=== PATIENT | male | born 1940 | race Caucasian/White ===

== ENCOUNTER → 2016-11-20 | Outpatient (REF) | payer MEDICARE, OTHER ==
[~2016-11-20] MED LIST: ALLE180T33 PO; BAYE325T12 PO; CALCTAB68 PO; CARD4TAB2 PO; DIOV160T6 PO; DRIS50002 PO; FENO145T PO; KETO2AER2 EXT; KETO2CR EXT; LASI80TA PO; LOVA1CAP17 PO; PROA1AER INH; PROT1TAB2 PO; PROZ20CA11 PO; PROZ40CA PO; XALA0.002 OU
[2016-11-20 15:45] LABS: MEAN CORPUSCULAR HEMOGLOBIN 29.6 pg (27.0-33.0); MEAN CORPUSCULAR HGB CONC 33.3 g/dl (32.0-36.5); WHITE BLOOD COUNT 4.2 K/mm3 (4.0-10.0)
[2016-11-20 16:06] LABS: ALBUMIN 3.4 GM/DL (3.2-5.2); ALBUMIN/GLOBULIN RATIO 1.21 (1.00-1.93); ALKALINE PHOSPHATASE 42 U/L (45-117); ALT/SGPT 25 U/L (12-78); ANION GAP 6 MEQ/L (8-16); AST/SGOT 16 U/L (15-37); BILIRUBIN,TOTAL 0.4 MG/DL (0.2-1.0); BLOOD UREA NITROGEN 17 MG/DL (7-18); CALCIUM LEVEL 9.2 MG/DL (8.8-10.2); CARBON DIOXIDE LEVEL 30 MEQ/L (21-32); CHLORIDE LEVEL 107 MEQ/L (98-107); CHOLESTEROL LEVEL 205 MG/DL (<200); CREATININE FOR GFR 1.16 MG/DL (0.70-1.30); GLOMERULAR FILTRATION RATE > 60.0 (>42); GLUCOSE, FASTING 82 MG/DL (83-110); POTASSIUM SERUM 4.1 MEQ/L (3.5-5.1); SODIUM LEVEL 143 MEQ/L (136-145); TOTAL PROTEIN 6.2 GM/DL (6.4-8.2); TRIGLYCERIDES LEVEL 164 MG/DL (<150)
== END ==
LOC: M SFHCPLAZ 13:57
PROVIDERS: ATTEND Family Medicine
DX: G47.33 Obstructive sleep apnea (adult) (pediatric) (principal); I10 Essential (primary) hypertension; E11.9 Type 2 diabetes mellitus without complications; E78.2 Mixed hyperlipidemia

== ENCOUNTER → 2017-05-26 | Outpatient (REF) | payer MEDICARE, OTHER ==
[~2017-05-26] MED LIST changes: -PROA1AER INH; +PROAAER10 INH; -XALA0.002 OU; +XALA0.007 OU
[2017-05-26 20:17] LABS: ALBUMIN 3.6 GM/DL (3.2-5.2); ALKALINE PHOSPHATASE 38 U/L (45-117); ALT/SGPT 28 U/L (12-78); ANION GAP 6 MEQ/L (8-16); AST/SGOT 19 U/L (15-37); BILIRUBIN,TOTAL 0.4 MG/DL (0.2-1.0); BLOOD UREA NITROGEN 14 MG/DL (7-18); CARBON DIOXIDE LEVEL 30 MEQ/L (21-32); CHLORIDE LEVEL 105 MEQ/L (98-107); CHOLESTEROL LEVEL 245 MG/DL (<200); CREATININE FOR GFR 1.04 MG/DL (0.70-1.30); GLOMERULAR FILTRATION RATE > 60.0 (>42); GLUCOSE, FASTING 106 MG/DL (83-110); POTASSIUM SERUM 3.6 MEQ/L (3.5-5.1); SODIUM LEVEL 141 MEQ/L (136-145); TOTAL PROTEIN 6.6 GM/DL (6.4-8.2); TRIGLYCERIDES LEVEL 256 MG/DL (<150)
== END ==
LOC: M SFHCPLAZ 14:34
PROVIDERS: ATTEND Nurse Practitioner Adult Health
DX: E11.9 Type 2 diabetes mellitus without complications (principal); I10 Essential (primary) hypertension; E78.2 Mixed hyperlipidemia; E55.9 Vitamin D deficiency, unspecified; Z23 Encounter for immunization
CPT/HCPCS: 36415; 80053; 80061; 82043; 82306; 83036; 90662; G0008

== ENCOUNTER → 2017-12-01 | Outpatient (REF) | payer MEDICARE, OTHER ==
[2017-12-01 16:02] LABS: HEMATOCRIT 37.8 % (42.0-52.0); HEMOGLOBIN 12.3 g/dl (13.5-17.5); MEAN CORPUSCULAR HEMOGLOBIN 28.7 pg (27.0-33.0); MEAN CORPUSCULAR HGB CONC 32.5 g/dl (32.0-36.5); MEAN CORPUSCULAR VOLUME 88.1 fl (80.0-96.0); PLATELET COUNT, AUTOMATED 156 10^3/uL (150-450); RED BLOOD COUNT 4.29 10^6/uL (4.30-6.10); RED CELL DISTRIBUTION WIDTH 12.8 % (11.5-14.5)
[2017-12-01 16:12] LABS: ALBUMIN 3.6 GM/DL (3.2-5.2); ALBUMIN/GLOBULIN RATIO 1.16 (1.00-1.93); ALKALINE PHOSPHATASE 43 U/L (45-117); ALT/SGPT 23 U/L (12-78); ANION GAP 6 MEQ/L (8-16); AST/SGOT 18 U/L (7-37); BILIRUBIN,TOTAL 0.4 MG/DL (0.2-1.0); BLOOD UREA NITROGEN 17 MG/DL (7-18); CALCIUM LEVEL 9.5 MG/DL (8.8-10.2); CARBON DIOXIDE LEVEL 31 MEQ/L (21-32); CHLORIDE LEVEL 106 MEQ/L (98-107); CHOLESTEROL LEVEL 233 MG/DL (<200); CHOLESTEROL RISK RATIO 5.682 (<5); CREATININE FOR GFR 1.13 MG/DL (0.70-1.30); GLOMERULAR FILTRATION RATE > 60.0 (>42); GLUCOSE, FASTING 124 MG/DL (70-100); HDL CHOLESTEROL 41 MG/DL (>40); LDL CHOLESTEROL 150.2 MG/DL (<100); NON-HDL-C 192 MG/DL; POTASSIUM SERUM 3.7 MEQ/L (3.5-5.1); SODIUM LEVEL 143 MEQ/L (136-145); TOTAL PROTEIN 6.7 GM/DL (6.4-8.2); TRIGLYCERIDES LEVEL 209 MG/DL (<150)
[2017-12-01 16:15] LABS: ESTIMATED AVERAGE GLUCOSE 166 MG/DL (60-110); HEMOGLOBIN A1c 7.4 %; TOTAL 25(OH) VITAMIN D 59.5 NG/ML (30.0-100.0)
[2017-12-01 19:36] LABS: MALB URINE SIEMENS 36.6 MG/L
== END ==
LOC: M SFHCPLAZ 14:45
DX: E11.9 Type 2 diabetes mellitus without complications (principal); E55.9 Vitamin D deficiency, unspecified; I10 Essential (primary) hypertension; E78.2 Mixed hyperlipidemia; G47.33 Obstructive sleep apnea (adult) (pediatric); Z79.899 Other long term (current) drug therapy; Z79.82 Long term (current) use of aspirin
CPT/HCPCS: 80053

== ENCOUNTER → 2018-05-26 | Outpatient (REF) | payer MEDICARE, OTHER ==
[2018-05-26 17:48] LABS: ALBUMIN 3.4 GM/DL (3.2-5.2); ALKALINE PHOSPHATASE 38 U/L (45-117); ALT/SGPT 21 U/L (12-78); ANION GAP 7 MEQ/L (8-16); AST/SGOT 13 U/L (7-37); BILIRUBIN,TOTAL 0.4 MG/DL (0.2-1.0); BLOOD UREA NITROGEN 15 MG/DL (7-18); CALCIUM LEVEL 9.1 MG/DL (8.8-10.2); CARBON DIOXIDE LEVEL 30 MEQ/L (21-32); CHLORIDE LEVEL 107 MEQ/L (98-107); CHOLESTEROL LEVEL 245 MG/DL (<200); CHOLESTEROL RISK RATIO 5.975 (<5); CREATININE FOR GFR 1.06 MG/DL (0.70-1.30); GLOMERULAR FILTRATION RATE > 60.0 (>42); GLUCOSE, FASTING 129 MG/DL (70-100); HDL CHOLESTEROL 41 MG/DL (>40); LDL CHOLESTEROL 171 MG/DL (<100); NON-HDL-C 204 MG/DL; POTASSIUM SERUM 4.4 MEQ/L (3.5-5.1); SODIUM LEVEL 144 MEQ/L (136-145); TOTAL PROTEIN 6.5 GM/DL (6.4-8.2); TRIGLYCERIDES LEVEL 164 MG/DL (<150)
[2018-05-26 18:29] LABS: ESTIMATED AVERAGE GLUCOSE 151 MG/DL (60-110); HEMOGLOBIN A1c 6.9 %
[2018-05-26 18:34] LABS: MALB URINE SIEMENS 33.6 MG/L
== END ==
LOC: M SFHCLERA 11:47
DX: I10 Essential (primary) hypertension (principal); E11.9 Type 2 diabetes mellitus without complications; E78.2 Mixed hyperlipidemia; E55.9 Vitamin D deficiency, unspecified
CPT/HCPCS: 83735

== ENCOUNTER → 2018-11-24 | Outpatient (REF) | payer MEDICARE, OTHER ==
[~2018-11-24] MED LIST changes: -DRIS50002 PO; +DRIS50003 PO; -FENO145T PO; +FENO145T13 PO; -LASI80TA PO; +LASI80TA3 PO
[2018-11-24 17:20] LABS: ALBUMIN 3.5 GM/DL (3.2-5.2); ALT/SGPT 18 U/L (12-78); BILIRUBIN,TOTAL 0.5 MG/DL (0.2-1.0); BLOOD UREA NITROGEN 16 MG/DL (7-18); CARBON DIOXIDE LEVEL 31 MEQ/L (21-32); CHLORIDE LEVEL 106 MEQ/L (98-107); CHOLESTEROL LEVEL 229 MG/DL (<200); CHOLESTEROL RISK RATIO 5.452 (<5); CREATININE FOR GFR 1.17 MG/DL (0.70-1.30); GLOMERULAR FILTRATION RATE > 60.0 (>42); GLUCOSE, FASTING 170 MG/DL (70-100); HDL CHOLESTEROL 42 MG/DL (>40); LDL CHOLESTEROL 156 MG/DL (<100); NON-HDL-C 187 MG/DL; SODIUM LEVEL 141 MEQ/L (136-145); TRIGLYCERIDES LEVEL 157 MG/DL (<150)
[2018-11-24 17:22] LABS: MALB URINE SIEMENS 37.7 MG/L; MAU/CREAT RATIO 28.3 MCG/MG (0.0-30.0)
[2018-11-24 17:24] LABS: TOTAL 25(OH) VITAMIN D 65.6 NG/ML (30.0-100.0)
== END ==
LOC: M SFHCLERA 10:20
PROVIDERS: ATTEND Nurse Practitioner Adult Health
DX: I10 Essential (primary) hypertension (principal); E11.9 Type 2 diabetes mellitus without complications; E78.2 Mixed hyperlipidemia; E55.9 Vitamin D deficiency, unspecified

== ENCOUNTER → 2019-01-23 | Outpatient (CLI) | payer MEDICARE, OTHER ==
--- NOTE | 2019-01-23 11:30 | REP ---
REASON: Carotid arterial stenosis. COMPARISON: None. Echogenic material is seen along the carotid arterial tellez, some of which casts as acoustic shadow. RIGHT LEFT CCA systolic 58.0 cm/s 69.8 cm/s CCA diastolic 14.7 cm/s 14.3 cm/s ICA systolic 104.4 cm/s 74.5 cm/s ICA diastolic 10.5 cm/s 20. 1cm/s ICA/CCA ratio 1.79 1.07 Analysis of the spectral tracing shows no evidence of significant spectral broadening. There is antegrade flow seen in both vertebral arteries. IMPRESSION: There is less than 50% stenosis of the internal carotid artery bilaterally according to the NASCET consensus criteria. Both soft and calcified atheromatous plaque is identified. Electronically Signed by Gerardo Decker DO 01/23/2019 12:58 P
== END ==
LOC: M RAD 10:25
PROVIDERS: ATTEND Physician Assistant
DX: I65.23 Occlusion and stenosis of bilateral carotid arteries (principal)

== ENCOUNTER → 2019-05-30 | Outpatient (REF) | payer MEDICARE, OTHER ==
[2019-05-30 18:11] LABS: ALBUMIN 3.6 GM/DL (3.2-5.2); ALT/SGPT 23 U/L (12-78); BILIRUBIN,TOTAL 0.5 MG/DL (0.2-1.0); BLOOD UREA NITROGEN 16 MG/DL (7-18); CALCIUM LEVEL 9.3 MG/DL (8.8-10.2); CARBON DIOXIDE LEVEL 29 MEQ/L (21-32); CHLORIDE LEVEL 107 MEQ/L (98-107); CHOLESTEROL LEVEL 242 MG/DL (<200); CREATININE FOR GFR 1.14 MG/DL (0.70-1.30); GLOMERULAR FILTRATION RATE > 60.0 (>42); GLUCOSE, FASTING 110 MG/DL (70-100); HDL CHOLESTEROL 46 MG/DL (>40); LDL CHOLESTEROL 158 MG/DL (<100); MAGNESIUM LEVEL 1.8 MG/DL (1.8-2.4); NON-HDL-C 196 MG/DL; POTASSIUM SERUM 3.8 MEQ/L (3.5-5.1); SODIUM LEVEL 143 MEQ/L (136-145); TOTAL PROTEIN 6.6 GM/DL (6.4-8.2); TRIGLYCERIDES LEVEL 189 MG/DL (<150)
[2019-05-30 18:13] LABS: TOTAL 25(OH) VITAMIN D 66.8 NG/ML (30.0-100.0)
[2019-05-30 18:38] LABS: MALB URINE SIEMENS 34.9 MG/L; MAU/CREAT RATIO 21.4 MCG/MG (0.0-30.0)
[2019-05-30 19:22] LABS: HEMOGLOBIN A1c 6.6 %
== END ==
LOC: M SFHCPLAZ 10:29
PROVIDERS: ATTEND Nurse Practitioner Adult Health
DX: I10 Essential (primary) hypertension (principal); E11.9 Type 2 diabetes mellitus without complications; E78.2 Mixed hyperlipidemia; E55.9 Vitamin D deficiency, unspecified; Z79.899 Other long term (current) drug therapy; Z79.82 Long term (current) use of aspirin

== ENCOUNTER → 2019-12-08 | Outpatient (REF) | payer MEDICARE, OTHER ==
[~2019-12-08] MED LIST changes: -FENO145T13 PO; +FENO145T7 PO
[2019-12-08 17:22] LABS: HEMOGLOBIN A1c 7.3 %
[2019-12-08 17:26] LABS: ALBUMIN 3.6 GM/DL (3.2-5.2); ALT/SGPT 20 U/L (12-78); BILIRUBIN,TOTAL 0.5 MG/DL (0.2-1.0); BLOOD UREA NITROGEN 17 MG/DL (7-18); CALCIUM LEVEL 9.7 MG/DL (8.8-10.2); CARBON DIOXIDE LEVEL 32 MEQ/L (21-32); CHLORIDE LEVEL 106 MEQ/L (98-107); CHOLESTEROL LEVEL 248 MG/DL (<200); CHOLESTEROL RISK RATIO 6.048 (<5); CREATININE FOR GFR 1.16 MG/DL (0.70-1.30); GLOMERULAR FILTRATION RATE > 60.0 (>42); GLUCOSE, FASTING 122 MG/DL (70-100); HDL CHOLESTEROL 41 MG/DL (>40); LDL CHOLESTEROL 166 MG/DL (<100); NON-HDL-C 207 MG/DL; POTASSIUM SERUM 3.8 MEQ/L (3.5-5.1); SODIUM LEVEL 142 MEQ/L (136-145); TOTAL PROTEIN 6.6 GM/DL (6.4-8.2); TRIGLYCERIDES LEVEL 203 MG/DL (<150)
[2019-12-08 17:32] LABS: TOTAL 25(OH) VITAMIN D 58.4 NG/ML (30.0-100.0)
[2019-12-08 17:34] LABS: MALB URINE SIEMENS 37.4 MG/L; MAU/CREAT RATIO 31.1 MCG/MG (0.0-30.0)
== END ==
LOC: M SFHCPLAZ 15:17
PROVIDERS: ATTEND Physician Assistant
DX: E11.9 Type 2 diabetes mellitus without complications (principal); E55.9 Vitamin D deficiency, unspecified; E78.2 Mixed hyperlipidemia

== ENCOUNTER → 2020-06-03 | Outpatient (CLI) | payer MEDICARE, OTHER ==
[2020-06-03 13:46] LABS: ALBUMIN 3.5 GM/DL (3.2-5.2); ALT/SGPT 23 U/L (12-78); BILIRUBIN,TOTAL 0.5 MG/DL (0.2-1.0); BLOOD UREA NITROGEN 13 MG/DL (7-18); CALCIUM LEVEL 9.9 MG/DL (8.8-10.2); CARBON DIOXIDE LEVEL 33 MEQ/L (21-32); CHLORIDE LEVEL 106 MEQ/L (98-107); CHOLESTEROL LEVEL 246 MG/DL (<200); CHOLESTEROL RISK RATIO 5.857 (<5); CREATININE FOR GFR 1.23 MG/DL (0.70-1.30); GLOMERULAR FILTRATION RATE > 60.0 (>35); GLUCOSE, FASTING 157 MG/DL (70-100); HDL CHOLESTEROL 42 MG/DL (>40); LDL CHOLESTEROL 164 MG/DL (<100); MAGNESIUM LEVEL 1.9 MG/DL (1.8-2.4); NON-HDL-C 204 MG/DL; POTASSIUM SERUM 3.7 MEQ/L (3.5-5.1); SODIUM LEVEL 144 MEQ/L (136-145); TOTAL PROTEIN 6.4 GM/DL (6.4-8.2); TRIGLYCERIDES LEVEL 198 MG/DL (<150)
[2020-06-03 13:52] LABS: MALB URINE SIEMENS 55.5 MG/L; MAU/CREAT RATIO 30.6 MCG/MG (0.0-30.0); TOTAL 25(OH) VITAMIN D 66.5 NG/ML (30.0-100.0)
[2020-06-03 14:41] LABS: HEMOGLOBIN A1c 7.1 %
== END ==
LOC: M WUC 09:39
PROVIDERS: ATTEND Physician Assistant
DX: E11.9 Type 2 diabetes mellitus without complications (principal); E55.9 Vitamin D deficiency, unspecified; E78.2 Mixed hyperlipidemia; I10 Essential (primary) hypertension; Z79.899 Other long term (current) drug therapy

== ENCOUNTER 2020-08-25 13:40 | Emergency (ER) | payer MEDICARE, OTHER ==
[~2020-08-25] VITALS: Ht 165.1 cm; Wt 102.3 kg
[2020-08-25] MEDS ORDERED: PRESCAP PO (14:08)
[2020-08-25] MEDS ORDERED: IRBE150T7 PO (14:08)
[2020-08-25] MEDS ORDERED: INDA125TA PO (14:08)
[2020-08-25] MEDS ORDERED: ADV250INH INH (14:08)
[2020-08-25] MEDS ORDERED: CALC600C3 PO (14:08)
[2020-08-25] MEDS ORDERED: GLIM4TAB5 PO (14:08)
[2020-08-25] MEDS ORDERED: SERO1TAB3 PO (14:08)
[2020-08-25] MEDS ORDERED: ASPI1CHW3 PO (14:08)
[2020-08-25] MEDS ORDERED: OLOP0.1D OU (14:08)
[2020-08-25] MEDS ORDERED: ACETAMINOPHEN 325 MG TAB PO ONE (14:45)
--- NOTE | 2020-08-25 15:35 | REP ---
INDICATION: trauma COMPARISON: None. TECHNIQUE: AP, lateral, bilateral oblique views left wrist. FINDINGS: Evaluation for subtle injury is limited by age-related osteopenia and generalized osteoarthritic degenerative changes. No obvious acute fracture or dislocation identified. No subcutaneous emphysema or foreign body. IMPRESSION: Osteopenia and degenerative changes. No obvious acute fracture or dislocation. <Electronically signed by Javier Ornelas > 08/25/20 1535
--- NOTE | 2020-08-25 15:36 | REP ---
INDICATION: trauma COMPARISON: None. TECHNIQUE: Internal rotation, external rotation, and Y view. FINDINGS: Age-related osteopenia and arthritic degenerative changes are appreciated. No acute fracture or dislocation. No subcutaneous emphysema or foreign body. Surrounding soft tissues are grossly unremarkable. IMPRESSION: Osteopenia degenerative changes. No acute fracture or dislocation. <Electronically signed by Javier Ornelas > 08/25/20 9437
--- NOTE | 2020-08-25 15:37 | REP ---
INDICATION: trauma COMPARISON: None. TECHNIQUE: AP, lateral views of the left humerus. FINDINGS: Age-related osteopenia and arthritic changes at the shoulder and elbow joints. No acute fracture or dislocation. No subcutaneous emphysema or foreign body. IMPRESSION: Age-related degenerative changes. No acute fracture or dislocation. <Electronically signed by Javier Ornelas > 08/25/20 1536
[2020-08-25 16:28] VITALS: BP 171/86
== END 2020-08-25 16:37 | disposition home or self-care (01) ==
LOC: M ED 13:40
DX: S40.012A Contusion of left shoulder, initial encounter (principal); S63.92XA Sprain of unspecified part of left wrist and hand, initial encounter; W18.39XA Other fall on same level, initial encounter; Y92.018 Other place in single-family (private) house as the place of occurrence of the external cause; Z79.899 Other long term (current) drug therapy; Z79.82 Long term (current) use of aspirin; Z88.8 Allergy status to other drugs, medicaments and biological substances; Z91.018 Allergy to other foods

== ENCOUNTER 2020-09-25 12:40 | Emergency (ER) | payer MEDICARE, OTHER ==
[~2020-09-25] VITALS: Ht 165.1 cm; Wt 95.5 kg
[~2020-09-25 12:40] MED LIST changes: +ADV250INH INH; +ASPI1CHW3 PO; +CALC600C3 PO; +GLIM4TAB5 PO; +INDA125TA PO; +IRBE150T7 PO; +OLOP0.1D OU; +PRESCAP PO; +SERO1TAB3 PO
[2020-09-25] MEDS ORDERED: ASPIRIN 81 MG CHEW TABLET PO ONE (13:00)
[2020-09-25] MEDS ORDERED: ALBUTEROL 90 MCG/ACT 8GM HFA INHALER INH ONE (13:00)
[2020-09-25 13:32] LABS: VENOUS HCO3 29.2 MEQ/L (23.0-27.0); VENOUS O2 SATURATION 78.3 % (60.0-80.0); VENOUS PARTIAL PRESSURE CO2 56.7 mmHg (38.0-50.0); VENOUS PARTIAL PRESSURE O2 45.4 mmHg (30.0-50.0); VENOUS STANDARD HCO3 25.8 MEQ/L
[2020-09-25 13:36] LABS: BASO % 0.5 % (0.0-1.0); EOS # 0.1 10^3/uL (0.0-0.5); EOS % 1.2 % (0.0-3.0); HEMOGLOBIN 12.8 g/dl (13.5-17.5); LYMPH # 0.8 10^3/uL (1.5-5.0); LYMPH % 18.6 % (24.0-44.0); MEAN CORPUSCULAR VOLUME 90.7 fl (80.0-96.0); MONO # 0.2 10^3/uL (0.0-0.8); MONO % 5.2 % (0.0-5.0); NEUTROPHILS # 3.1 10^3/uL (1.5-8.5); NEUTROPHILS % 73.8 % (36.0-66.0); PLATELET COUNT, AUTOMATED 135 10^3/uL (150-450); RED BLOOD COUNT 4.41 10^6/uL (4.30-6.10); WHITE BLOOD COUNT 4.3 10^3/uL (4.0-10.0)
[2020-09-25 13:51] LABS: INR 0.93; PROTHROMBIN TIME 12.7 SECONDS (12.5-14.3)
[2020-09-25 13:53] LABS: D-DIMER QUANT 1795.98 ng/ml (<500)
--- OUTSIDE RECORDS SUMMARY | 2020-09-25 13:59 | CCD ---
Author Author [facility] Organization [facility] Address Unknown Phone Unavailable Care Team Providers Care Sales Agent Name Role Phone Penelope Blount Unavailable PROBLEMS Type Condition ICD9-CM Code [id number] Code Onset Dates Condition S tatus SNOMED Code Notes Problem Allergic rhinitis, unspecified J30.9 Active 6 0645901 Problem Unspecified asthma, uncomplicated J45.909 Active 05529182 Problem Essential (primary) hypertension I10 Active 69923589 Problem Chronic diastolic (congestive) heart failure I50.3 2 Active 916657032 Problem Major depressive disorder, single episode, unspecified F32.9 Active 25136147 Problem Obstructive sleep apnea (adult) (pediatric) G47.33 Active 88297271 Problem Vitamin D deficiency, unspecified E55.9 Active 05839032 Problem History of squamous cell carcinoma Z85.89 Activ e [id number] healed well Problem Mixed hyperlipidemia E78.2 Active 175279098 Problem 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 Problem Memory loss R41.3 Active 93004709 Problem Enlarged prostate without lower urinary tract symptoms N40.0 Active 615774891 Problem Other seborrheic keratosis L82.1 Active 05262 8000 Problem Gastro-esophageal reflux disease with esophagitis K21.0 Active 781674246 Problem Type 2 diabetes mellitus without complications E11 .9 Active 651267146 Problem History of basal cell cancer Z85.828 Active 428 623700 no recurrence Problem Actinic keratosis L57.0 Active 742789248 I do n't see where the PDT's are doing much good. Still has a few thick aks and widespread actinic damage. Discussed option to use a field treatment instead with patient and . 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.0 Active 627243198 Problem Pain in left shoulder M25.512 Active 59686961 ALLERGIES Allergen (clinical drug ingredient) Drug/Non Drug Allergy do cumented on EMR Reaction Allergy Type Onset Date Status Livalo mylagias Non Drug Allergy Active pravastatin Pravachol([facility] Code:[address]-31) myalgia Drug Allergy Active leatha inhibitors cough Non Drug Allergy Acti ve fluvastatin Lescol myalgia Drug Allergy Active Zantac does not work Drug Allergy Active atorvastatin Lipitor(ND Code:[address]-98) myalgia Drug Allergy Active Penicillin (For Allergies Use Only) diarrhea Drug Allerg y Active ENCOUNTERS from 1940 to 2020-09-06 Encounter Location Date Provider Diagnosis [address] [address] Aug, Penelope Servage IMMUNIZATIONS Vaccine Route Administration Date Status Influenza (18 yrs & older) Flublok IM Intramuscular May 31, 2018 Administered Influenza (18 yrs & older) Flublok IM Intramuscular Jun 05, 2019 Administered Influenza (18 yrs & older) Flublok IM Intramuscular Jun 10, 2020 Administered Influenza (High Dose 65 & up) IM Intramuscular Jul 03, 2015 A dministered Influenza (High Dose 65 & up) IM Intramuscular Jun 17, 2016 A dministered Influenza (High Dose 65 & up) IM Intramuscular May 26, 2017 A dministered Influenza (6mo & up) Fluzone IM Intramuscular Jun 27, 2010 Ad ministered Zoster 0.65mL (Zostavax) Unknown Aug 28, 2013 Adminis tered Pneumococcal Adult 0.5mL (Pneumovax 23) IM Intramuscular December 26, 2013 Administered Pneumococcal Adult 0.5mL (Pneumovax 23) Unknown December 26, 2001 Administered Pneumococcal 0.5mL (Prevnar 13) IM Intramuscular December 26, 2014 Administered Influenza (6mo & up) Fluzone IM Intramuscular Jun 26, 2014 Ad ministered Influenza (6mo & up) Fluzone IM Intramuscular Jun 28, 2013 Ad ministered Influenza (6mo & up) Fluzone IM Intramuscular Jul 07, 2012 Ad ministered Influenza (6mo & up) Fluzone IM Intramuscular Jun 25, 2011 Ad ministered SOCIAL HISTORY Sex Assigned At : Social History Observation Description Sex Assigned At Unknown Audit Question Answer Notes Total Score: 0 Interpretation: Alcohol Education Scientology: Question Answer Notes Scientology 08 Roman Catholic Sexual Hx: Question Answer Notes Had sex in the last 12 months (vaginal, oral, or anal)? No Have you ever had an STD? No Drug and Alcohol Question Answer Notes Total Score: 0 Interpretation: No problems reported Alcohol Screening: Question Answer Notes Did you have a drink containing alcohol in the past year? No Points 0 Interpretation Negative BMI Care Goal Follow-Up Question Answer Notes Above Normal BMI Follow-Up Giving encouragement to exercise REASON FOR REFERRAL No Information VITAL SIGNS No information MEDICATIONS Medication SIG (Take, Route, Frequency, Duration) Notes Start Da te End Date Status Glimepiride 4 MG 1 tablet with breakfast or t he first main meal of the day Orally Once a day for 30 day(s) Active Fczvk-1-tlaq Ethyl Esters 1 GM 1 cap Orally Twice a day for 90 day(s) Active Calcium 600 + D 600-400 MG-UNIT 1 tablet Orally once a day Active Fenofibrate 145MG 1 tablet Orally Once a day Active Julieta Allergy 180 MG 1 tablet Orally Once a day as needed for 30 da y(s) Active Albuterol Sulfate HFA 108 (90 Base) MCG/ACT 2 puffs In halation four times a day as needed Active Prozac 20MG 1 capsule Orally Once a day Active Advair Diskus 250-50 MCG/DOSE 1 puff Inhalation Twice a day/ D*A *W May, Active Latanoprost 0.005 % 1 drop into affected eye in the evening Ophthalmic Once a day for 30 days Active Aspirin 325 MG 1 tablet Orally Once a day Active Drisdol 77312 UNIT 1 capsule Orally weekly Active Cardura 8MG 1/2 tablet Orally Once a day for 90 days Active Ketoconazole 2 % 1 application to affected ar ea Externally to skin folds twice a day as needed Oct, Active Irbesartan 150 MG 1 tablet Orally Once a day Active Protonix 40 MG 1 tablet Orally daily as needed for 30 days Active Quetiapine Fumarate 25 MG 1 tab Orally before bedtime for 90 days Active Indapamide 1.25 MG 1 tablet in the morning Orally Once a day Active PROCEDURES No Information RESULTS No Results REASON FOR VISIT [facility] MEDICAL (GENERAL) HISTORY Type Description Date Medical History HTN Medical History type 2 diabetes Medical History hyperlipidemia Medical History vitamin D def Medical History anemia Medical History reactive depression 12/25 Medical History obstructive sleep apnea Medical History metabolic syndrome Medical History GERD Medical History NST 11/28--nl perfusion, nl E F 60%, Normal stress SPECT 01/2012; NST 07/07: EF 80%, no perfusion abnl, normal study Medical History echo 11/28--nl EF 65%,mild LA E (42 mm), ao sclerosis; 06/06: LAE 42 mm, EF 85% Medical History enviromental allergies Medical History cataracts Medical History in situ melanoma left side face Medical History 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 Bird) 2003 Surgical History colonoscopy -internal hemorrrhoids, dive rticulosis- no samples 01/23/16 Surgical History skin ca 08/2011 Surgical History melanoma on the top of his head 2014 Surgical History [place]-AAA repair-Dr.Scott Evans (en dovascular AAA repair) 05/08/16 Surgical History Bilateral cataract extraction 03/09 017 Hospitalization History [facility] AAA repair 02/2016 Hospitalization History [place]-Pneumonia 01/2016 Goals Section No Information Health Concerns No Information MEDICAL EQUIPMENT No Information MENTAL STATUS No Information FUNCTIONAL STATUS No Information ASSESSMENTS No Information PLAN OF TREATMENT Medication Medication Name Sig Start Date Stop Date Quetiapine Fumarate 25 MG 1 tab Orally before bedtime for 90 day s Prozac 20MG 1 capsule Orally Once a day Indapamide 1.25 MG 1 tablet in the morning Orally Once a day Irbesartan 150 MG 1 tablet Orally Once a day Fenofibrate 145MG 1 tablet Orally Once a day Glimepiride 4 MG 1 tablet with breakfast or t he first main meal of the day Orally Once a day for 30 day(s) Next Appt Details Provider Name:Penelope Blount, 01:00:00 PM, [address] [place], [address], Insurance Providers Payer Name Payer Address Payer Phone Insured Name Patient Relati onship to Insured Coverage Start Date Coverage End Date MEDICARE Part A and B [address] [facility] [phone] YANI HALL [facility] [address] [address] [facility] [phone] YANI HALL [id number]
--- OUTSIDE RECORDS SUMMARY | 2020-09-25 13:59 | CCD ---
Author Author [facility] Organization [facility] Address Unknown Phone Unavailable Care Team Providers Care Risk Developer Name Role Phone Penelope Blount Unavailable PROBLEMS Type Condition ICD9-CM Code [id number] Code Onset Dates Condition S tatus SNOMED Code Notes Problem Allergic rhinitis, unspecified J30.9 Active 6 2143332 Problem Unspecified asthma, uncomplicated J45.909 Active 53085276 Problem Essential (primary) hypertension I10 Active 82562420 Problem Chronic diastolic (congestive) heart failure I50.3 2 Active 289811045 Problem Major depressive disorder, single episode, unspecified F32.9 Active 75133801 Problem Obstructive sleep apnea (adult) (pediatric) G47.33 Active 56535910 Problem Vitamin D deficiency, unspecified E55.9 Active 35227829 Problem History of squamous cell carcinoma Z85.89 Activ e 83350924043242 healed well Problem Mixed hyperlipidemia E78.2 Active 550494405 Problem 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 Problem Memory loss R41.3 Active 54123389 Problem Enlarged prostate without lower urinary tract symptoms N40.0 Active 608682582 Problem Other seborrheic keratosis L82.1 Active 74764 8000 Problem Gastro-esophageal reflux disease with esophagitis K21.0 Active 827504734 Problem Type 2 diabetes mellitus without complications E11 .9 Active 513997441 Problem History of basal cell cancer Z85.828 Active 428 772287 no recurrence Problem Actinic keratosis L57.0 Active 667013948 I do n't see where the PDT's are doing much good. Still has a few thick aks and widespread actinic damage. Discussed option to use a field treatment instead with patient and . 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 Active 064692620 Problem Pain in left shoulder M25.512 Active 47833063 ALLERGIES Allergen (clinical drug ingredient) Drug/Non Drug Allergy do cumented on EMR Reaction Allergy Type Onset Date Status Livalo mylagias Non Drug Allergy Active pravastatin Pravachol([facility] Code:[address]-70) myalgia Drug Allergy Active leatha inhibitors cough Non Drug Allergy Acti ve fluvastatin Lescol myalgia Drug Allergy Active Zantac does not work Drug Allergy Active atorvastatin Lipitor(ND Code:[address]-39) myalgia Drug Allergy Active Penicillin (For Allergies Use Only) diarrhea Drug Allerg y Active ENCOUNTERS from 1940 to 2020-09-18 Encounter Location Date Provider Diagnosis [address] [address] Aug, Penelope Servage IMMUNIZATIONS Vaccine Route Administration [...] Notes Total Score: 0 Interpretation: Alcohol Education Roman Catholic: Question Answer Notes Roman Catholic 08 Evangelical Sexual Hx: Question Answer Notes Had sex [...] Notes Start Da te End Date Status Vwuez-1-yauk Ethyl Esters 1 GM 1 cap Orally Twice a day for 90 day(s) Active Indapamide 1.25 MG 1 tablet in the morning Orally Once a day Active Fenofibrate 145MG 1 tablet Orally Once a day Active Ketoconazole 2 % 1 application to affected ar ea Externally to skin folds twice a day as needed Oct, Active Glimepiride 4 MG 1 tablet with breakfast or t he first main meal of the day Orally Once a day for 30 day(s) Active Prozac 20MG 1 capsule Orally Once a day Active Advair Diskus 250-50 MCG/DOSE 1 puff Inhalation Twice a day/ D*A *W May, Active Albuterol Sulfate HFA 108 (90 Base) MCG/ACT 2 puffs In halation four times a day as needed Active Protonix 40 MG 1 tablet Orally daily as needed for 30 days Active Aspirin 325 MG 1 tablet Orally Once a day Active Calcium 600 + D 600-400 MG-UNIT 1 tablet Orally once a day Active Julieta Allergy 180 MG 1 tablet Orally Once a day as needed for 30 da y(s) Active Irbesartan 150 MG 1 tablet Orally Once a day Active Quetiapine Fumarate 25 MG 1 tab Orally before bedtime for 90 days Active Latanoprost 0.005 % 1 drop into affected eye in the evening Ophthalmic Once a day for 30 days Active Transfer Bench - DX code R53.81- Z50JAJF WGT 225# daily for 1865 days Aug, Active Drisdol 66251 UNIT 1 capsule Orally weekly Active Cardura 8MG 1/2 tablet Orally Once a day for 90 days Active PROCEDURES No Information RESULTS No Results REASON FOR VISIT Face to face MEDICAL (GENERAL) HISTORY Type Description Date Medical [...] Bilateral cataract extraction 03/09 017 Hospitalization History [facility] AAA repair 02/2016 Hospitalization History [place]-Pneumonia 01/2016 Goals Section No Information Health Concerns No Information MEDICAL EQUIPMENT No Information MENTAL STATUS No Information FUNCTIONAL STATUS No Information ASSESSMENTS No Information PLAN OF TREATMENT Medication Medication Name Sig Start Date Stop Date Prozac 20MG 1 capsule Orally Once a day Transfer Bench - DX code R53.81- [id number] WGT 225# daily f or 186 days Aug, Irbesartan 150 MG 1 tablet Orally Once a day Quetiapine Fumarate 25 MG 1 tab Orally before bedtime for 90 day s Glimepiride 4 MG 1 tablet with breakfast or t he first main meal of the day Orally Once a day for 30 day(s) Indapamide 1.25 MG 1 tablet in the morning Orally Once a day Fenofibrate 145MG 1 tablet Orally Once a day Next Appt Details Provider Name:Penelope Blount, 01:00:00 PM, [address] [place] [address], [phone], Insurance Providers Payer Name Payer Address Payer Phone Insured Name Patient Relati onship to Insured Coverage Start Date Coverage End Date [facility] [address] [address] [facility] [phone] YANI HALL [id number] MEDICARE Part A and B [address] [place] [phone] YANI HALL self
--- OUTSIDE RECORDS SUMMARY | 2020-09-25 13:59 | CCD ---
Author Author [facility] Organization [facility] Address Unknown Phone Unavailable Care Team Providers Care Residential Supervisor Name Role Phone Penelope Blount Unavailable PROBLEMS Type Condition ICD9-CM Code [id number] Code Onset Dates Condition S tatus SNOMED Code Notes Problem Allergic rhinitis, unspecified J30.9 Active 6 1875933 Problem Unspecified asthma, uncomplicated J45.909 Active 54419788 Problem Essential (primary) hypertension I10 Active 44317184 Problem Chronic diastolic (congestive) heart failure I50.3 2 Active 747968802 Problem Major depressive disorder, single episode, unspecified F32.9 Active 14327980 Problem Obstructive sleep apnea (adult) (pediatric) G47.33 Active 51521944 Problem Vitamin D deficiency, unspecified E55.9 Active 35030941 Problem 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 Problem Memory loss R41.3 Active 51620331 Problem Enlarged prostate without lower urinary tract symptoms N40.0 Active 843945718 Problem Other seborrheic keratosis L82.1 Active 60162 8000 Problem Gastro-esophageal reflux disease with esophagitis K21.0 Active 668664923 Problem Type 2 diabetes mellitus without complications E11 .9 Active 329521233 Problem History of basal cell cancer Z85.828 Active 428 269513 no recurrence Problem Actinic keratosis L57.0 Active 624746531 I do n't see where the PDT's are doing much good. Still has a few thick aks and widespread actinic damage. Discussed option to use a field treatment instead with patient and . 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 Active 161195082 Problem Pain in left shoulder M25.512 Active 08993914 ALLERGIES Allergen (clinical drug ingredient) Drug/Non Drug Allergy do cumented on EMR Reaction Allergy Type Onset Date Status Livalo mylagias Non Drug Allergy Active pravastatin Pravachol([facility] Code:[address]-93) myalgia Drug Allergy Active leatha inhibitors cough Non Drug Allergy Acti ve fluvastatin Lescol myalgia Drug Allergy Active Zantac does not work Drug Allergy Active atorvastatin Lipitor(ND Code:[address]-74) myalgia Drug Allergy Active Penicillin (For Allergies Use Only) diarrhea Drug Allerg y Active ENCOUNTERS from 1940 to 2020-09-18 Encounter Location Date Provider Diagnosis [address] [address] Aug, Penelope Servage IMMUNIZATIONS Vaccine Route Administration [...] Notes Total Score: 0 Interpretation: Alcohol Education Orthodoxy: Question Answer Notes Orthodoxy 08 Jewish Sexual Hx: Question Answer Notes Had sex [...] Notes Start Da te End Date Status Sykzs-2-buuq Ethyl Esters 1 GM 1 cap Orally [...] Active Transfer Bench - DX code R53.81- C69VPML T 225# daily for 1864 Aug, Active Drisdol 79239 UNIT 1 capsule Orally weekly Active Cardura 8MG 1/2 tablet Orally Once a day for 90 days Active PROCEDURES No Information RESULTS No Results REASON FOR VISIT script for transfer [facility] MEDICAL (GENERAL) HISTORY Type Description Date Medical [...] top of his head 2014 Surgical History [place]-AAA repair-Dr.Scott Evans (en dovascular AAA repair) 05/08/16 [...] day Transfer Bench - DX code R53.81- [id number] WGT 225# daily f or 1864 Aug, Irbesartan 150 MG 1 tablet Orally [...] Appt Details Provider Name:Penelope Blount, 01:00:00 PM, [address] [place] [address], [phone], Insurance Providers Payer Name Payer Address Payer Phone Insured Name Patient Relati onship to Insured Coverage Start Date Coverage End Date MEDICARE Part A and B [address] [facility] [phone] YANI HALL [facility] [address] [facility] [address] YANI HALL [id number]
--- OUTSIDE RECORDS SUMMARY | 2020-09-25 13:59 | CCD ---
Author Author [facility] Organization [facility] Address Unknown Phone Unavailable Care Team Providers Care Oracle Soa Architect Name Role Phone Penelope Blount Unavailable PROBLEMS Type Condition ICD9-CM Code [id number] Code Onset Dates Condition S tatus SNOMED Code Notes Problem Allergic rhinitis, unspecified J30.9 Active 6 2290318 Problem Unspecified asthma, uncomplicated J45.909 Active 25248665 Problem Essential (primary) hypertension I10 Active 91240486 Problem Chronic diastolic (congestive) heart failure I50.3 2 Active 157273643 Problem Major depressive disorder, single episode, unspecified F32.9 Active 68145809 Problem Obstructive sleep apnea (adult) (pediatric) G47.33 Active 83741813 Problem Vitamin D deficiency, unspecified E55.9 Active 28594718 Problem History of squamous cell carcinoma Z85.89 Activ e 71720077231951 healed well Problem Mixed hyperlipidemia E78.2 Active 809135595 Problem 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 Problem Memory loss R41.3 Active 51967896 Problem Enlarged prostate without lower urinary tract symptoms N40.0 Active 537783941 Problem Other seborrheic keratosis L82.1 Active 18900 8000 Problem Gastro-esophageal reflux disease with esophagitis K21.0 Active 947100167 Problem Type 2 diabetes mellitus without complications E11 .9 Active 876273340 Problem History of basal cell cancer Z85.828 Active 428 847025 no recurrence Problem Actinic keratosis L57.0 Active 316311675 I do n't see where the PDT's are doing much good. Still has a few thick aks and widespread actinic damage. Discussed option to use a field treatment instead with patient and . Problem Leg pain, left M79.605 Active 918309522 Problem Essential hypertension I10 Active 65556802 Problem Ichthyosis vulgaris Q80.0 Active 301737124 Problem Pain in left shoulder M25.512 Active 65868921 ALLERGIES Allergen (clinical drug ingredient) Drug/Non Drug Allergy do cumented on EMR Reaction Allergy Type Onset Date Status Livalo mylagias Non Drug Allergy Active pravastatin Pravachol([facility] Code:[address]-40) myalgia Drug Allergy Active leatha inhibitors cough Non Drug Allergy Acti ve fluvastatin Lescol myalgia Drug Allergy Active Zantac does not work Drug Allergy Active atorvastatin Lipitor(ND Code:[address]-34) myalgia Drug Allergy Active Penicillin (For Allergies Use Only) diarrhea Drug Allerg y Active ENCOUNTERS from 1940 to 2020-09-20 Encounter Location Date Provider Diagnosis [address] [address] Aug, Penelope Servage IMMUNIZATIONS Vaccine Route Administration [...] Notes Total Score: 0 Interpretation: Alcohol Education Latter-Day: Question Answer Notes Latter-Day 08 Anglican Sexual Hx: Question Answer Notes Had sex [...] Notes Start Da te End Date Status Wcrfk-4-dqto Ethyl Esters 1 GM 1 cap Orally [...] Active Transfer Bench - DX code R53.81- [id number] WGT 225# daily for 1865 days Aug, Active Drisdol 54090 UNIT 1 capsule Orally weekly Active Cardura 8MG 1/2 tablet Orally Once a day for 90 days Active PROCEDURES No Information RESULTS No Results 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 Bird) 2003 Surgical History colonoscopy -internal hemorrrhoids, dive rticulosis- no samples 01/23/16 Surgical History skin ca 08/2011 Surgical History melanoma on the top of his head 2014 Surgical History [place]-AAA repair-Dr.Scott Evans (en dovascular AAA repair) 05/08/16 Surgical History Bilateral cataract extraction 03/09 017 Hospitalization History [place] AAA repair 02/2016 Hospitalization History [place]-Pneumonia 01/2016 Goals Section No Information Health Concerns No Information MEDICAL EQUIPMENT No Information MENTAL STATUS No Information FUNCTIONAL STATUS No Information ASSESSMENTS No Information PLAN OF TREATMENT Medication Medication Name Sig Start Date Stop Date Prozac 20MG 1 capsule Orally Once a day Transfer Bench - DX code R53.81- [id number] WGT 225# daily f or 186 days [...] Appt Details Provider Name:Penelope Blount, 01:00:00 PM, [address] [place] [address], [phone], Insurance Providers Payer Name Payer Address Payer Phone Insured Name Patient Relati onship to Insured Coverage Start Date Coverage End Date [facility] [address] [address] [facility] [address] YANI HALL [id number] MEDICARE Part A and B [address] [place] [phone] YANI HALL self
[2020-09-25 14:00] LABS: ALBUMIN 3.4 GM/DL (3.2-5.2); ALT/SGPT 27 U/L (12-78); BILIRUBIN,DIRECT < 0.1 MG/DL (0.0-0.2); BILIRUBIN,TOTAL 0.3 MG/DL (0.2-1.0); BLOOD UREA NITROGEN 20 MG/DL (7-18); CALCIUM LEVEL 9.9 MG/DL (8.8-10.2); CARBON DIOXIDE LEVEL 32 MEQ/L (21-32); CHLORIDE LEVEL 103 MEQ/L (98-107); CK-MB VALUE MASS 1.3 NG/ML (<3.6); CPK CREATINE PHOSPHOKINASE 118 U/L (39-308); CREATININE FOR GFR 1.33 MG/DL (0.70-1.30); GLOMERULAR FILTRATION RATE 55.1 (>35); GLUCOSE, FASTING 345 MG/DL (70-100); NT-PRO BNP 70 PG/ML (<450); POTASSIUM SERUM 3.6 MEQ/L (3.5-5.1); SODIUM LEVEL 141 MEQ/L (136-145); TOTAL PROTEIN 6.2 GM/DL (6.4-8.2); TROPONIN I < 0.02 NG/ML (< 0.10)
--- OUTSIDE RECORDS SUMMARY | 2020-09-25 14:00 | CCD ---
Author Author [facility] Organization [facility] Address Unknown Phone Unavailable Care Team Providers Care Stepdown Nurse Name Role Phone Penelope Blount Unavailable PROBLEMS Type Condition ICD9-CM Code NYG73-MR Code Onset Dates Condition S tatus SNOMED Code Notes Problem Allergic rhinitis, unspecified J30.9 Active 6 0208869 Problem Unspecified asthma, uncomplicated J45.909 Active 17962522 Problem Essential (primary) hypertension I10 Active 45602573 Problem Chronic diastolic (congestive) heart failure I50.3 2 Active 877485905 Problem Major depressive disorder, single episode, unspecified F32.9 Active 88769468 Problem Obstructive sleep apnea (adult) (pediatric) G47.33 Active 11160247 Problem Vitamin D deficiency, unspecified E55.9 Active 34490632 Problem History of squamous cell carcinoma Z85.89 Activ e 45653832461529 healed well Problem Mixed hyperlipidemia E78.2 Active 143709196 Problem 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 Problem Memory loss R41.3 Active 92881730 Problem Enlarged prostate without lower urinary tract symptoms N40.0 Active 286402738 Problem Other seborrheic keratosis L82.1 Active 29182 8000 Problem Gastro-esophageal reflux disease with esophagitis K21.0 Active 518182045 Problem Type 2 diabetes mellitus without complications E11 .9 Active 709285384 Problem History of basal cell cancer Z85.828 Active 428 157291 no recurrence Problem Actinic keratosis L57.0 Active 046114502 I do n't see where the PDT's are doing much good. Still has a few thick aks and widespread actinic damage. Discussed option to use a field treatment instead with patient and . Problem Leg pain, left M79.605 Active 898104576 Problem Essential hypertension I10 Active 35609867 Problem Ichthyosis vulgaris Q80.0 Active 701176343 Problem Pain in left shoulder M25.512 Active 58849435 ALLERGIES Allergen (clinical drug ingredient) Drug/Non Drug Allergy do cumented on EMR Reaction Allergy Type Onset Date Status Livalo mylagias Non Drug Allergy Active pravastatin Pravachol(ND Code:[address]-27) myalgia Drug Allergy Active leatha inhibitors cough Non Drug Allergy Acti ve fluvastatin Lescol myalgia Drug Allergy Active Zantac does not work Drug Allergy Active atorvastatin Lipitor(NDC Code:[address]-85) myalgia Drug Allergy Active Penicillin (For Allergies Use Only) diarrhea Drug Allerg y Active ENCOUNTERS from 1940 to 2020-08-30 Encounter Location Date Provider Diagnosis [address] [address] Jul, Penelope Servage Unspecified asthma, uncomplicated J45.90 9 IMMUNIZATIONS Vaccine Route Administration Date Status Influenza [...] IM Intramuscular Jun 27, 2010 Ad ministered Pneumococcal Adult 0.5mL (Pneumovax 23) IM Intramuscular December 26, 2013 Administered Zoster 0.65mL (Zostavax) Unknown Aug 28, 2013 Adminis tered Pneumococcal Adult 0.5mL (Pneumovax 23) Unknown December [...] Notes Total Score: 0 Interpretation: Alcohol Education Taoism: Question Answer Notes Taoism 08 Mormonism Sexual Hx: Question Answer Notes Had sex [...] Once a day for 30 day(s) Active Euhun-8-qiuj Ethyl Esters 1 GM 1 cap Orally [...] tablet Orally Once a day Active Drisdol 72260 UNIT 1 capsule Orally weekly Active Cardura [...] Information RESULTS No Results REASON FOR VISIT med issues. MEDICAL (GENERAL) HISTORY Type Description Date Medical [...] No Information FUNCTIONAL STATUS No Information ASSESSMENTS Encounter Date Diagnosis Assessment Notes Treatment Notes Treatm ent Clinical Notes Jul, Unspecified asthma, uncomplicated (ICD-10 - J45. 909) PLAN OF TREATMENT Medication Medication Name Sig [...] Details Provider Name:Penelope Blount, 01:00:00 PM, [address] [place], [address], Insurance Providers Payer Name Payer Address Payer Phone Insured Name Patient Relati onship to Insured Coverage Start Date Coverage End Date MEDICARE Part A and B [address] [facility] [address] YANI HALL Formerly [facility] [address] [address] [facility] [phone] YANI HALL [id number]
--- OUTSIDE RECORDS SUMMARY | 2020-09-25 14:00 | CCD ---
Author Author [facility] Organization [facility] Address Unknown Phone Unavailable Care Team Providers Care Electrolysis Needle Operator Name Role Phone Penelope Blount Unavailable PROBLEMS Type Condition ICD9-CM Code AAT51-BN Code Onset Dates Condition S tatus SNOMED Code Notes Problem Allergic rhinitis, unspecified J30.9 Active 6 0162097 Problem Unspecified asthma, uncomplicated J45.909 Active 41199051 Problem Essential (primary) hypertension I10 Active 90886718 Problem Chronic diastolic (congestive) heart failure I50.3 2 Active 337629084 Problem Major depressive disorder, single episode, unspecified F32.9 Active 83723851 Problem Obstructive sleep apnea (adult) (pediatric) G47.33 Active 48573378 Problem Vitamin D deficiency, unspecified E55.9 Active 01755745 Problem History of squamous cell carcinoma Z85.89 Activ e 91111505285380 healed well Problem Mixed hyperlipidemia E78.2 Active 281888220 Problem 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 Problem Memory loss R41.3 Active 77260482 Problem Enlarged prostate without lower urinary tract symptoms N40.0 Active 476154398 Problem Other seborrheic keratosis L82.1 Active 80683 8000 Problem Gastro-esophageal reflux disease with esophagitis K21.0 Active 726348083 Problem Type 2 diabetes mellitus without complications E11 .9 Active 950973228 Problem History of basal cell cancer Z85.828 Active 428 865283 no recurrence Problem Actinic keratosis L57.0 Active 864823099 I do n't see where the PDT's are doing much good. Still has a few thick aks and widespread actinic damage. Discussed option to use a field treatment instead with patient and . Problem Leg pain, left M79.605 Active 474909391 Problem Essential hypertension I10 Active 53650127 Problem Ichthyosis vulgaris Q80.0 Active 731902616 Problem Pain in left shoulder M25.512 Active 13867552 ALLERGIES Allergen (clinical drug ingredient) Drug/Non Drug Allergy do cumented on EMR Reaction Allergy Type Onset Date Status Livalo mylagias Non Drug Allergy Active pravastatin Pravachol([facility] Code:[address]-89) myalgia Drug Allergy Active leatha inhibitors cough Non Drug Allergy Acti ve fluvastatin Lescol myalgia Drug Allergy Active Zantac does not work Drug Allergy Active atorvastatin Lipitor(ND Code:[address]-89) myalgia Drug Allergy Active Penicillin (For Allergies Use Only) diarrhea Drug Allerg y Active ENCOUNTERS from 1940 to 2020-09-03 Encounter Location Date Provider Diagnosis [address] [address] Aug, Penelope Servage Acute pain of left shoulder M25.512 ; Ty pe 2 diabetes mellitus without complications E11.9 ; Physical deconditioning R53.81 ; Muscular deconditioning R29.898 ; Memory loss R41.3 ; Major depressive disorder, single episode, unspecified F32.9 ; Mixed hyperlipidemia E78.2 ; Obstructive sleep apnea (adult) (pediatric) G47.33 ; Fall, subsequent encounter W19.XXXD ; Essential (primary) hypertension I10 and Chronic diastolic (congestive) heart failure I50.32 IMMUNIZATIONS Vaccine Route Administration Date Status Influenza [...] Notes Total Score: 0 Interpretation: Alcohol Education Yarsanism: Question Answer Notes Yarsanism 08 Lutheran Sexual Hx: Question Answer Notes Had sex [...] REASON FOR REFERRAL No Information VITAL SIGNS Weight 225 lbs Aug, Height 69 in Aug, BMI 33.22 kg/m2 Aug, Heart Rate 72 /min Aug, Respiratory Rate 18 /min Aug, Temperature 96.8 degrees Fahrenheit Aug, Oximetry 95% Aug, Blood pressure systolic 160 mm Hg Aug, Blood pressure diastolic 80 mm Hg Aug, MEDICATIONS Medication SIG (Take, Route, Frequency, Duration) Notes Start Da te End Date Status Glimepiride 4 MG 1 tablet with breakfast or t he first main meal of the day Orally Once a day for 30 day(s) Active Hyajj-3-fkvy Ethyl Esters 1 GM 1 cap Orally [...] tablet Orally Once a day Active Drisdol 24901 UNIT 1 capsule Orally weekly Active Cardura [...] Information RESULTS No Results REASON FOR VISIT ER follow up, Referrel for Home Care PT. in May he was never seen. , Pt flores s no Face 2 Face in documents MEDICAL (GENERAL) HISTORY Type Description Date Medical [...] u, vertex scalp Medical History retinal infarction 02/04--[facility] Surgical History tonsillectomy 1944 Surgical History [...] Notes Treatment Notes Treatm ent Clinical Notes Aug, Acute pain of left shoulder (ICD-10 - M25.512) today he states he does not have pain, will refer to ortho per son's request Aug, Type 2 diabetes mellitus without complications ( ICD-10 - E11.9) diabetic control adequate with patient-centered goals . Goal Hg hgA1c 7.5-8 is appropriate for this pt. will refer to podiatry for diabetic foot care. Aug, Physical deconditioning (ICD-10 - R53.81) Order home health physical therapy for strengthening and conditioning Aug, Muscular deconditioning (ICD-10 - R29.898) 1 fall at home with no injury and 1 fall with er visit will order physical therapy ? balance vs vision issue Aug, Memory loss (ICD-10 - R41.3) suppose to be on Seroquel determined he is not taking it, discussed with son, will restart and see if helps at night did not feel fadi hernandez helping, stopped medication stopped Aug, Major depressive disorder, s celia episode, unspecified (ICD-10 - F32.9) currently prozac 40 mg 1 day and 20 mg next day discussed with pt will drop down to 20 mg daily son will monitor stop wellbutrin, is not taking it Aug, Mixed hyperlipidemia (ICD-10 - E78.2) does not tolerate statins, uses fish oil, and tricor Aug, Obstructive sleep apnea (adult) (pediatric) (ICD -10 - G47.33) uses cpap nightly seen by pulmonary Aug, Fall, subsequent encounter (ICD-10 - W19.XXXD) ER notes reviewed with pt and son. Aug, Essential (primary) hypertension (ICD-10 - I10) since diuretic has been changed, blood pressure sligtly higher than his norm, Controlled thru Cardiology,, Per JNC 8 guidelines, goal BP 150/90 if age >60, is meeting goal on current regimen. A Aug, Chronic diastolic (congestive) heart failure (IC D-10 - I50.32) follow with cardiology, lasix was discontinued, indapamide 1.25mg po q day recently started. appears evolemic today last echocardiogram was 01/25/2015 LVEF is 65% he continues to follow 2 g sodium diet and a 50 ounce fluid restriction per 24 hours. per son saw cardiology a couple weeks ago PLAN OF TREATMENT Medication Medication Name Sig [...] Orally Once a day for 30 day(s) Treatment Notes Assessment Notes Clinical Notes Acute pain of left shoulder today he sta yecenia he does not have pain, will refer to ortho per son's request Type 2 diabetes mellitus without complications diabetic control adequate with patient-centered goals . Goal Hg hgA1c 7.5-8 is appropriate for this pt. will refer to podiatry for diabetic foot care. Physical deconditioning Order home healt h physical therapy for strengthening and conditioning Muscular deconditioning 1 fall at home w ith no injury and 1 fall with er visit will order physical therapy ? balance vs vision issue Memory loss suppose to be on Se roquel determined he is not taking it, discussed with son, will restart and see if helps at nightwife did not feel fadi hernandez helping, stopped medication stopped Major depressive disorder, single episode, unspecified currently prozac 40 mg 1 day and 20 mg next day discussed with pt will drop down to 20 mg daily son will monitorstop wellbutrin, is not taking it Mixed hyperlipidemia does not tolerate s tatins, uses fish oil, and tricor Obstructive sleep apnea (adult) (pediatric) uses cpap nightly seen by pulmonary Fall, subsequent encounter ER notes i arturo with pt and son. Essential (primary) hypertension since d iuretic has been changed, blood pressure sligtly higher than his norm, Controlled thru Cardiology,, Per JNC 8 guidelines, goal BP 150/90 if age >60, is meeting goal on current regimen. A Chronic diastolic (congestive) heart failure follow with cardiology, lasix was discontinued, indapamide 1.25mg po q day recently started. appears evolemic today last echocardiogram was 01/25/2015 LVEF is 65% he continues to follow 2 g sodium diet and a 50 ounce fluid restriction per 24 hours.per son saw cardiology a couple weeks ago Next Appt Details Penelope as scheduled Reason: Provider Name:Penelope Adrian Dalyjerardo, 01:00:00 PM, [address] [place] [address], [phone], Insurance Providers Payer Name Payer Address Payer Phone Insured Name Patient Relati onship to Insured Coverage Start Date Coverage End Date MEDICARE Part A and B [address] [facility] [phone] YANI HALL self [facility] [address] [id number] [facility] [address] YANI HALL [id number]
--- OUTSIDE RECORDS SUMMARY | 2020-09-25 14:00 | CCD ---
Author Author [facility] Organization [facility] Address Unknown Phone Unavailable Care Team Providers Care Horticulture Teacher Name Role Phone Penelope Blount Unavailable PROBLEMS Type Condition ICD9-CM Code PMB76-XK Code Onset Dates Condition S tatus SNOMED Code Notes Problem Allergic rhinitis, unspecified J30.9 Active 6 9722776 Problem Unspecified asthma, uncomplicated J45.909 Active 50585474 Problem Essential (primary) hypertension I10 Active 68736121 Problem Chronic diastolic (congestive) heart failure I50.3 2 Active 397003283 Problem Major depressive disorder, single episode, unspecified F32.9 Active 20929803 Problem Obstructive sleep apnea (adult) (pediatric) G47.33 Active 21880046 Problem Vitamin D deficiency, unspecified E55.9 Active 15239718 Problem History of squamous cell carcinoma Z85.89 Activ e 18487587184262 healed well Problem Mixed hyperlipidemia E78.2 Active 901668790 Problem 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 Problem Memory loss R41.3 Active 71590774 Problem Enlarged prostate without lower urinary tract symptoms N40.0 Active 926530041 Problem Other seborrheic keratosis L82.1 Active 29165 8000 Problem Gastro-esophageal reflux disease with esophagitis K21.0 Active 786184137 Problem Type 2 diabetes mellitus without complications E11 .9 Active 757072568 Problem History of basal cell cancer Z85.828 Active 428 560227 no recurrence Problem Actinic keratosis L57.0 Active 850717508 I do n't see where the PDT's are doing much good. Still has a few thick aks and widespread actinic damage. Discussed option to use a field treatment instead with patient and . Problem Leg pain, left M79.605 Active 983156466 Problem Essential hypertension I10 Active 66512806 Problem Ichthyosis vulgaris Q80.0 Active 561682712 Problem Pain in left shoulder M25.512 Active 03742261 ALLERGIES Allergen (clinical drug ingredient) Drug/Non Drug Allergy do cumented on EMR Reaction Allergy Type Onset Date Status Livalo mylagias Non Drug Allergy Active pravastatin Pravachol([facility] Code:[address]-14) myalgia Drug Allergy Active leatha inhibitors cough Non Drug Allergy Acti ve fluvastatin Lescol myalgia Drug Allergy Active Zantac does not work Drug Allergy Active atorvastatin Lipitor(ND Code:[address]-85) myalgia Drug Allergy Active Penicillin (For Allergies Use Only) diarrhea Drug Allerg y Active ENCOUNTERS from 1940 to 2020-08-28 Encounter Location Date Provider Diagnosis [address] [address] Aug, Penelope Servage IMMUNIZATIONS Vaccine Route Administration [...] Intramuscular Jun 27, 2010 Ad ministered Pneumococcal 0.5mL (Prevnar 13) IM Intramuscular December 26, 2014 Administered Pneumococcal Adult 0.5mL (Pneumovax 23) IM Intramuscular December 26, 2013 Administered Pneumococcal Adult 0.5mL (Pneumovax 23) Unknown December 26, 2001 Administered Zoster 0.65mL (Zostavax) Unknown Aug 28, 2013 Adminis tered Influenza (6mo & up) Fluzone IM Intramuscular [...] Notes Total Score: 0 Interpretation: Alcohol Education Alevism: Question Answer Notes Alevism 08 Protestant Sexual Hx: Question Answer Notes Had sex [...] Once a day for 30 day(s) Active Yyekc-4-igiy Ethyl Esters 1 GM 1 cap Orally [...] tablet Orally Once a day Active Drisdol 69030 UNIT 1 capsule Orally weekly Active Cardura [...] RESULTS No Results REASON FOR VISIT ER FU MEDICAL (GENERAL) HISTORY Type Description Date Medical [...] Bilateral cataract extraction 03/09 017 Hospitalization History [place] AAA repair 02/2016 Hospitalization History [place]-Pneumonia [...] Details Provider Name:Penelope Blount, 01:00:00 PM, [address] [place], [address], Insurance Providers Payer Name Payer Address Payer Phone Insured Name Patient Relati onship to Insured Coverage Start Date Coverage End Date [facility] [address] [id number] [facility] [phone] YANI HALL [id number] MEDICARE Part A and B [address] [facility] [phone] YANI HALL self
--- OUTSIDE RECORDS SUMMARY | 2020-09-25 14:01 | CCD ---
Author Author [facility] Organization [facility] Address Unknown Phone Unavailable Care Team Providers Care Reducing Machine Operator Name Role Phone Chanelle Quiñones Unavailable Unavailable SymenowChanelle PA Unavailable Unavailable Symenow, Chanelle Danielson PA Unavailable Unavailable SymenoChanelle peoples PA Unavailable Unavailable SymenoChanelle peoples PA Unavailable Unavailable SymenoChanelle peoples PA Unavailable Unavailable SymenoChanelle peoples PA Unavailable Unavailable Symenoshelton, Chanelle Danielson PA Unavailable Unavailable Symenoshelton, Chanelle Danielson PA Unavailable Unavailable SymenoChanelle peoples PA Unavailable Unavailable Jose JuanenoChanelle peoples PA Unavailable Unavailable Jose JuanenoChanelle peoples PA Unavailable Unavailable Nuria, Chanelle Danielson PA Unavailable Unavailable Symenoshelton, Chanelle Danielson PA Unavailable Unavailable Symenoshelton, Chanelle Danielson PA Unavailable Unavailable Symenoshelton, Chanelle Danielson PA Unavailable Unavailable Symenoshelton, Chanelle Danielson PA Unavailable Unavailable Symenow, Chanelle Erum PA Unavailable Unavailable Symenow, Chanelle Erum PA Unavailable Unavailable Symenow, Chanelle Erum PA Unavailable Unavailable Symenow, Chanelle Erum PA Unavailable Unavailable Symenow, Chanelle Erum PA Unavailable Unavailable Symenow, Chanelle Erum PA Unavailable Unavailable Symenow, Chanelle Erum PA Unavailable Unavailable Symenow, Chanelle Erum PA Unavailable Unavailable Symenow, Chanelle Erum PA Unavailable Unavailable Symenow, Chanelle Erum PA Unavailable Unavailable Symenow, Chanelle Erum PA Unavailable Unavailable Symenow, Chanelle Erum PA Unavailable Unavailable Symenow, Chanelle Erum PA Unavailable Unavailable Symenow, Chanelle Erum PA Unavailable Unavailable Symenow, Chanelle Erum PA Unavailable Unavailable Symenow, Chanelle Erum PA Unavailable Unavailable Symenow, Chanelle Erum PA Unavailable Unavailable Symenow, Chanelle Erum PA Unavailable Unavailable Symenow, Chanelle Erum PA Unavailable Unavailable Marquis Wynn PA Unavailable Unavailable Marquis NELSON MD Unavailable Unavailable Marquis NELSON MD Unavailable Unavailable Marquis NELSON MD Unavailable Unavailable Marquis NELSON MD Unavailable Unavailable Marquis NELSON MD Unavailable Unavailable Marquis NELSON MD Unavailable Unavailable Marquis NELSON MD Unavailable Unavailable Marquis NELSON MD Unavailable Unavailable Marquis NELSON MD Unavailable Unavailable Marquis NELSON MD Unavailable Unavailable Marquis NELSON MD Unavailable Unavailable Marquis NELSON MD Unavailable Unavailable Marquis NELSON MD Unavailable Unavailable Marquis NELSON MD Unavailable Unavailable Marquis NELSON MD Unavailable Unavailable Marquis NELSON MD Unavailable Unavailable Marquis NELSON MD Unavailable Unavailable Marquis NELSON MD Unavailable Unavailable Marquis NELSON MD Unavailable Unavailable Marquis NELSON MD Unavailable Unavailable Marquis NELSON MD Unavailable Unavailable Marquis NELSON MD Unavailable Unavailable Marquis NELSON MD Unavailable Unavailable Marquis NELSON MD Unavailable Unavailable Marquis NELSON MD Unavailable Unavailable Marquis NELSON MD Unavailable Unavailable Marquis NELSON MD Unavailable Unavailable Marquis NELSON MD Unavailable Unavailable Marquis NELSON MD Unavailable Unavailable Marquis NELSON MD Unavailable Unavailable Marquis NELSON MD Unavailable Unavailable Marquis NELSON MD Unavailable Unavailable Marquis NELSON MD Unavailable Unavailable Marquis NELSON MD Unavailable Unavailable Marquis NELSON MD Unavailable Unavailable Marquis NELSON MD Unavailable Unavailable Marquis NELSON MD Unavailable Unavailable Marquis NELSON MD Unavailable Unavailable Marquis NELSON MD Unavailable Unavailable Marquis NELSON MD Unavailable Unavailable Marquis NELSON MD Unavailable Unavailable Marquis NELSON MD Unavailable Unavailable Marquis NELSON MD Unavailable Unavailable Marquis NELSON MD Unavailable Unavailable Marquis NELSON MD Unavailable Unavailable Marquis NELSON MD Unavailable Unavailable Marquis NELSON MD Unavailable Unavailable Marquis NELSON MD Unavailable Unavailable Marquis NELSON MD Unavailable Unavailable Marquis NELSON MD Unavailable Unavailable Marquis NELSON MD Unavailable Unavailable Marquis NELSON MD Unavailable Unavailable Marquis NELSON MD Unavailable Unavailable Marquis NELSON MD Unavailable Unavailable Marquis NELSON MD Unavailable Unavailable Marquis NELSON MD Unavailable Unavailable Marquis NELSON MD Unavailable Unavailable Marquis NELSON MD Unavailable Unavailable Marquis NELSON MD Unavailable Unavailable Marquis NELSON MD Unavailable Unavailable Marquis NELSON MD Unavailable Unavailable Marquis NELSON MD Unavailable Unavailable Marquis NELSON MD Unavailable Unavailable Marquis NELSON MD Unavailable Unavailable Marquis NELSON MD Unavailable Unavailable Daryn, M Brook RPA Unavailable Unavailable Daryn, M Brook RPA Unavailable Unavailable Daryn, M Brook RPA Unavailable Unavailable Daryn, M Brook RPA Unavailable Unavailable Daryn, M Brook RPA Unavailable Unavailable Daryn, M Brook RPA Unavailable Unavailable Daryn, M Brook RPA Unavailable Unavailable Daryn, M Brook RPA Unavailable Unavailable Daryn, M Brook RPA Unavailable Unavailable Daryn, M Brook RPA Unavailable Unavailable Daryn, M Brook RPA Unavailable Unavailable Daryn, M Brook RPA Unavailable Unavailable Adryn, M Brook RPA Unavailable Unavailable Daryn, M Brook RPA Unavailable Unavailable Daryn, M Brook RPA Unavailable Unavailable Daryn, M Brook RPA Unavailable Unavailable Daryn, M Brook RPA Unavailable Unavailable Daryn, M Brook RPA Unavailable Unavailable Daryn, M Brook RPA Unavailable Unavailable Daryn, M Brook RPA Unavailable Unavailable Daryn, M Brook RPA Unavailable Unavailable Daryn, M Brook RPA Unavailable Unavailable Daryn, M Brook RPA Unavailable Unavailable Daryn, M Brook RPA Unavailable Unavailable Daryn, M Brook RPA Unavailable Unavailable Daryn, M Brook RPA Unavailable Unavailable Daryn, M Brook RPA Unavailable Unavailable Daryn, M Brook RPA Unavailable Unavailable Daryn, M Brook RPA Unavailable Unavailable Daryn, M Brook RPA Unavailable Unavailable Daryn, M Brook RPA Unavailable Unavailable Daryn, M Brook RPA Unavailable Unavailable Daryn, M Brook RPA Unavailable Unavailable Daryn, M Brook RPA Unavailable Unavailable Daryn, M Brook RPA Unavailable Unavailable Daryn, M Brook RPA Unavailable Unavailable Daryn, M Brook RPA Unavailable Unavailable Daryn, M Brook RPA Unavailable Unavailable Daryn, M Brook RPA Unavailable Unavailable Daryn, M Brook RPA Unavailable Unavailable Daryn, M Brook RPA Unavailable Unavailable Daryn, M Brook RPA Unavailable Unavailable Daryn, Fouzia Brook ANP-BC Unavailable Unavailable Daryn, Fouzia Brook ANP-BC Unavailable Unavailable Daryn, Fouzia Brook ANP-BC Unavailable Unavailable Daryn, Fouzia Brook ANP-BC Unavailable Unavailable Daryn, Fouzia Brook ANP-BC Unavailable Unavailable Daryn, Fouzia Brook ANP-BC Unavailable Unavailable Daryn, Fouzia Brook ANP-BC Unavailable Unavailable Daryn, Fouzia Brook ANP-BC Unavailable Unavailable Daryn, Fouzia Brook ANP-BC Unavailable Unavailable Daryn, Fouzia Brook ANP-BC Unavailable Unavailable Daryn, Fouzia Brook ANP-BC Unavailable Unavailable Daryn, Fouzia Brook ANP-BC Unavailable Unavailable Daryn, Fouzia Brook ANP-BC Unavailable Unavailable Daryn, Fouzia Brook ANP-BC Unavailable Unavailable Daryn, Fouzia Brook ANP-BC Unavailable Unavailable Daryn, Fouzia Brook ANP-BC Unavailable Unavailable Daryn, Fouzia Brook ANP-BC Unavailable Unavailable Daryn, Fouzia Brook ANP-BC Unavailable Unavailable Daryn, Fouzia Brook ANP-BC Unavailable Unavailable Daryn, Fouzia Brook ANP-BC Unavailable Unavailable Daryn, Fouzia Brook ANP-BC Unavailable Unavailable Daryn, Fouzia Brook ANP-BC Unavailable Unavailable Daryn, Fouzia Brook ANP-BC Unavailable Unavailable Darny, Fouzia Brook ANP-BC Unavailable Unavailable Daryn, Fouzia Brook ANP-BC Unavailable Unavailable Daryn, Fouzia Brook ANP-BC Unavailable Unavailable Daryn, Fouzia Brook ANP-BC Unavailable Unavailable Daryn, Fouzia Brook ANP-BC Unavailable Unavailable Daryn, Fouzia Brook ANP-BC Unavailable Unavailable Daryn, Fouzia Brook ANP-BC Unavailable Unavailable Daryn, Fouzia Brook ANP-BC Unavailable Unavailable Daryn, Fouzia Brook ANP-BC Unavailable Unavailable Daryn, Fouzia Brook ANP-BC Unavailable Unavailable Daryn, Fouzia Brook ANP-BC Unavailable Unavailable Daryn, Fouzia Brook ANP-BC Unavailable Unavailable Daryn, Fouzia Brook ANP-BC Unavailable Unavailable Daryn, Fouzia Brook ANP-BC Unavailable Unavailable Daryn, Fouzia Brook ANP-BC Unavailable Unavailable Daryn, Fouzia Brook ANP-BC Unavailable Unavailable Daryn, Fouzia Brook ANP-BC Unavailable Unavailable Daryn, Fouzia Brook ANP-BC Unavailable Unavailable Daryn, Fouzia Brook ANP-BC Unavailable Unavailable Daryn, Fouzia Brook ANP-BC Unavailable Unavailable Daryn, Fouzia Brook ANP-BC Unavailable Unavailable Daryn, Fouzia Brook ANP-BC Unavailable Unavailable Daryn, Fouzia Brook ANP-BC Unavailable Unavailable Daryn, Fouzia Brook ANP-BC Unavailable Unavailable Daryn, Fouzia Brook ANP-BC Unavailable Unavailable Daryn, Fouzia Brook ANP-BC Unavailable Unavailable Daryn, Fouzia Brook ANP-BC Unavailable Unavailable Daryn, Fouzia Brook ANP-BC Unavailable Unavailable Daryn, Fouzia Brook ANP-BC Unavailable Unavailable Daryn, Fouzia Brook ANP-BC Unavailable Unavailable Daryn, Fouzia Brook ANP-BC Unavailable Unavailable Daryn, Fouzia Brook ANP-BC Unavailable Unavailable Daryn, Fouzia Brook ANP-BC Unavailable Unavailable Daryn, Fouzia Brook ANP-BC Unavailable Unavailable Daryn, Fouzia Brook ANP-BC Unavailable Unavailable Daryn, Fouzia Brook ANP-BC Unavailable Unavailable Daryn, Fouzia Brook ANP-BC Unavailable Unavailable Daryn, Fouzia Brook ANP-BC Unavailable Unavailable Daryn, Fouzia Brook ANP-BC Unavailable Unavailable Daryn, Fouzia Brook ANP-BC Unavailable Unavailable Daryn, Fouzia Brook ANP-BC Unavailable Unavailable Daryn, Fouzia Brook ANP-BC Unavailable Unavailable Daryn, Fouzia Brook ANP-BC Unavailable Unavailable Daryn, Fouzia Brook ANP-BC Unavailable Unavailable Daryn, Fouzia Brook ANP-BC Unavailable Unavailable Daryn, Fouzia Brook ANP-BC Unavailable Unavailable Daryn, Fouzia Brook ANP-BC Unavailable Unavailable Daryn, Fouzia Brook ANP-BC Unavailable Unavailable Daryn, Fouzia Brook ANP-BC Unavailable Unavailable Daryn, Fouzia Brook ANP-BC Unavailable Unavailable Daryn, Fouzia Brook ANP-BC Unavailable Unavailable Daryn, Fouzia Brook ANP-BC Unavailable Unavailable Daryn, Fouzia Brook ANP-BC Unavailable Unavailable Daryn, Fouzia Brook ANP-BC Unavailable Unavailable Daryn, Fouzia Brook ANP-BC Unavailable Unavailable Daryn, Fouzia Brook ANP-BC Unavailable Unavailable Daryn, Fouzia Brook ANP-BC Unavailable Unavailable Daryn, Fouzia Brook ANP-BC Unavailable Unavailable Daryn, Fouzia Brook ANP-BC Unavailable Unavailable Daryn, Fouzia Brook ANP-BC Unavailable Unavailable Daryn, Fouzia Brook ANP-BC Unavailable Unavailable Daryn, Fouzia Brook ANP-BC Unavailable Unavailable Daryn, Fouzia Brook ANP-BC Unavailable Unavailable Daryn, Fouzia Brook ANP-BC Unavailable Unavailable Daryn, Fouzia Brook ANP-BC Unavailable Unavailable Daryn, Fouzia Brook ANP-BC Unavailable Unavailable Daryn, Fouzia Brook ANP-BC Unavailable Unavailable Daryn, Fouzia Brook ANP-BC Unavailable Unavailable Daryn, Fouzia Brook ANP-BC Unavailable Unavailable Daryn, Fouzia Brook ANP-BC Unavailable Unavailable Daryn, Fouzia Brook ANP-BC Unavailable Unavailable Daryn, Fouzia Brook ANP-BC Unavailable Unavailable Daryn, Fouzia Brook ANP-BC Unavailable Unavailable Daryn, Fouzia Brook ANP-BC Unavailable Unavailable Daryn, Fouzia Brook ANP-BC Unavailable Unavailable Daryn, Fouzia Brook ANP-BC Unavailable Unavailable Daryn, Fouzia Brook ANP-BC Unavailable Unavailable Daryn, Fouzia Brook ANP-BC Unavailable Unavailable Daryn, Fouzia Brook ANP-BC Unavailable Unavailable Daryn, Fouzia Brook ANP-BC Unavailable Unavailable Daryn, Fouzia Brook ANP-BC Unavailable Unavailable Daryn, Fouzia Brook ANP-BC Unavailable Unavailable Daryn, Fouzia Brook ANP-BC Unavailable Unavailable Daryn, Fouzia Broko ANP-BC Unavailable Unavailable Daryn, Fouzia Brook ANP-BC Unavailable Unavailable Daryn, Fouzia Brook ANP-BC Unavailable Unavailable Daryn, Fouzia Brook ANP-BC Unavailable Unavailable Daryn, Fouzia Brook ANP-BC Unavailable Unavailable Daryn, Fouzia Brook ANP-BC Unavailable Unavailable Daryn, Fouzia Brook ANP-BC Unavailable Unavailable Daryn, Fouzia Brook ANP-BC Unavailable Unavailable Daryn, Fouzia Brook ANP-BC Unavailable Unavailable Daryn, Fouzia Brook ANP-BC Unavailable Unavailable Daryn, Fouzia Brook ANP-BC Unavailable Unavailable Daryn, Fouzia Brook ANP-BC Unavailable Unavailable Daryn, Fouzia Brook ANP-BC Unavailable Unavailable Daryn, Fouzia Brook ANP-BC Unavailable Unavailable Daryn, Fouzia Brook ANP-BC Unavailable Unavailable Daryn, Fouzia Brook ANP-BC Unavailable Unavailable Daryn, Fouzia Brook ANP-BC Unavailable Unavailable Daryn, Fouzia Brook ANP-BC Unavailable Unavailable Daryn, Fouzia Brook ANP-BC Unavailable Unavailable Daryn, Fouzia Brook ANP-BC Unavailable Unavailable Daryn, Fouzia Brook ANP-BC Unavailable Unavailable Daryn, Fouzia Brook ANP-BC Unavailable Unavailable ARNULFO, DAE PA Unavailable Unavailable ARNULFO, DAE PA Unavailable Unavailable ARNULFO, DAE PA Unavailable Unavailable ARNULFO, DAE PA Unavailable Unavailable ARNULFO, DAE PA Unavailable Unavailable ARNULFO, DAE PA Unavailable Unavailable ARNULFO, DAE PA Unavailable Unavailable ARNULFO, DAE PA Unavailable Unavailable ARNULFO, DAE PA Unavailable Unavailable ARNULFO, DAE PA Unavailable Unavailable Daryn, M Brook RPA Unavailable Unavailable Daryn, M Brook RPA Unavailable Unavailable Daryn, M Brook RPA Unavailable Unavailable Daryn, M Brook RPA Unavailable Unavailable Daryn, M Brook RPA Unavailable Unavailable Daryn, M Brook RPA Unavailable Unavailable Daryn, M Brook RPA Unavailable Unavailable Daryn, M Brook RPA Unavailable Unavailable Daryn, M Brook RPA Unavailable Unavailable Daryn, M Brook RPA Unavailable Unavailable Daryn, M Brook RPA Unavailable Unavailable Daryn, M Brook RPA Unavailable Unavailable Daryn, M Brook RPA Unavailable Unavailable Daryn, M Brook RPA Unavailable Unavailable Daryn, M Brook RPA Unavailable Unavailable Daryn, M Brook RPA Unavailable Unavailable Daryn, M Brook RPA Unavailable Unavailable Daryn, M Brook RPA Unavailable Unavailable Daryn, M Brook RPA Unavailable Unavailable Daryn, M Brook RPA Unavailable Unavailable Daryn, M Brook RPA Unavailable Unavailable Daryn, M Brook RPA Unavailable Unavailable Daryn, M Brook RPA Unavailable Unavailable Daryn, M Brook RPA Unavailable Unavailable Daryn, M Brook RPA Unavailable Unavailable Daryn, M Brook RPA Unavailable Unavailable Daryn, M Brook RPA Unavailable Unavailable Daryn, M Brook RPA Unavailable Unavailable Daryn, M Brook RPA Unavailable Unavailable Daryn, M Brook RPA Unavailable Unavailable Daryn, M Brook RPA Unavailable Unavailable Daryn, M Brook RPA Unavailable Unavailable Daryn, M Brook RPA Unavailable Unavailable Daryn, M Brook RPA Unavailable Unavailable Daryn, M Brook RPA Unavailable Unavailable Daryn, M Brook RPA Unavailable Unavailable Daryn, M Brook RPA Unavailable Unavailable Daryn, M Brook RPA Unavailable Unavailable Daryn, M Brook RPA Unavailable Unavailable Daryn, M Brook RPA Unavailable Unavailable Daryn, M Brook RPA Unavailable Unavailable Daryn, M Brook RPA Unavailable Unavailable Lianna, L Nancy AUTOMATIC SEAMER Unavailable Unavailable Lianna, L Nancy AUTOMATIC SEAMER Unavailable Unavailable Ilanna, L Nancy AUTOMATIC SEAMER Unavailable Unavailable Lianna, L Nancy AUTOMATIC SEAMER Unavailable Unavailable Lianna, L Nancy AUTOMATIC SEAMER Unavailable Unavailable Lianna, L Nancy AUTOMATIC SEAMER Unavailable Unavailable Lianna, L Nancy AUTOMATIC SEAMER Unavailable Unavailable Lianna, L Nancy AUTOMATIC SEAMER Unavailable Unavailable Lianna, L Nancy AUTOMATIC SEAMER Unavailable Unavailable Lianna, L Nancy AUTOMATIC SEAMER Unavailable Unavailable Lianna, L Nancy AUTOMATIC SEAMER Unavailable Unavailable Lainna, L Nancy AUTOMATIC SEAMER Unavailable Unavailable Lianna, L Nancy AUTOMATIC SEAMER Unavailable Unavailable Lianna, L Nancy AUTOMATIC SEAMER Unavailable Unavailable Lianna, L Nancy AUTOMATIC SEAMER Unavailable Unavailable Lianna, L Nancy AUTOMATIC SEAMER Unavailable Unavailable Lianna, L Nancy AUTOMATIC SEAMER Unavailable Unavailable Lianna, L Nancy AUTOMATIC SEAMER Unavailable Unavailable Lianna, L Nancy AUTOMATIC SEAMER Unavailable Unavailable Lianna, L Nancy AUTOMATIC SEAMER Unavailable Unavailable Lianna, L Nancy AUTOMATIC SEAMER Unavailable Unavailable Lianna, L Nancy AUTOMATIC SEAMER Unavailable Unavailable Re-disclosure Warning The records that you are about to access may contain information from federally-assisted alcohol or drug abuse programs. If such information is present, then the following federally mandated warning applies: This information has been disclosed to you from records protected by federal confidentiality rules (42 CFR part 2). The federal rules prohibit you from making any further disclosure of this information unless further disclosure is expressly permitted by the written consent of the person to whom it pertains or as otherwise permitted by 42 CFR part 2. A general authorization for the release of medical or other information is NOT sufficient for this purpose. The Federal rules restrict any use of the information to criminally investigate or prosecute any alcohol or drug abuse patient.The records that you are about to access may contain highly sensitive health information, the redisclosure of which is protected by Article 27-F of the [facility] Public Health law. If you continue you may have access to information: Regarding HIV / AIDS; Provided by facilities licensed or operated by the [facility] Office of Mental Health; or Provided by the [facility] Office for People With Developmental Disabilities. If such information is present, then the following [facility] mandated warning applies: This information has been disclosed to you from confidential records which are protected by state law. State law prohibits you from making any further disclosure of this information without the specific written consent of the person to whom it pertains, or as otherwise permitted by law. Any unauthorized further disclosure in violation of state law may result in a fine or nursing home sentence or both. A general authorization for the release of medical or other information is NOT sufficient authorization for further disc losure. Allergies and Adverse Reactions Type Description Substance Reaction Status Data Source(s ) Livalo Livalo pitavastatin 4 MG Oral Tablet [Livalo] muscle p ains Active eCW1 ([facility]) Statin's Statin's Statin's muscle pains Active eCW1 ([facility]) Davey inhibitors Davey inhibitors Davey inhibitors cough Active e CW1 ([facility]) Drug allergy Lipitor atorvastatin myalgia Active eCW1 ([facility]) Drug allergy Pravachol Pravastatin myalgia Active eCW1 ([facility]) Zantac Zantac Zantac does not work Active eCW1 ([facility]) davey inhibitors davey inhibitors davey inhibitors cough Active eC W1 ([facility]) Livalo Livalo pitavastatin 4 MG Oral Tablet [Livalo] mylagias Active eCW1 ([facility]) Lescol Lescol fluvastatin 40 MG Oral Capsule [Lescol] myalgia Active eCW1 ([facility]) Family History Family Member Name Family Member Gender Family Member Status Date o f Status Description Data Source(s) Unknown Unknown Problem MEDENT ([facility] Encounters Encounter Providers Location Date Indications Data Source(s ) Unknown [address] [facility] [address] 09/19/2020 12:00:00 AM EST eCW1 ([facility]) Unknown [address] [facility] [address] 09/13/2020 12:00:00 AM EST [facility]CW1 ([facility]) Unknown [address] [facility] [place] [address] 09/12/2020 12:00:00 AM EST eCW1 ([facility]) Unknown [address] [facility] [place] [address] 09/05/2020 12:00:00 AM EST eCW1 ([facility]) Office Visit, Est Pt., Level 3 PC [address] [place] [address] 08/28/2020 12:00:00 AM EST eCW1 ([facility]) Unknown [address] [facility] [address] 08/26/2020 12:00:00 AM EST eCW1 ([facility]) Unknown [address] [facility] [address] 08/08/2020 12:00:00 AM EST eCW1 ([facility]) Outpatient Attender: Erum HIGHTOWER Main Office 07/11/2020 12:30:00 PM EST MEDENT ([facility]) Office Visit, Est Pt., Level 3 FC [address] [place] [address] 06/10/2020 12:00:00 AM EDT eCW1 ([facility]) Unknown [address] [facility] [address] 06/06/2020 12:00:00 AM EDT eCW1 ([facility]) Unknown [address] [facility] [place] [address] 05/23/2020 12:00:00 AM EDT eCW1 ([facility]) Outpatient Attender: Nancy Gambino/Glenn/Tj/Jaclyn 05/21/2020 10:00:00 AM EDT MEDENT ([facility]) Outpatient Attender: Dae Wynn PAAttender: DAE HIGHTOWER CPSCAORT-LABPNP 03/11/2020 08:27:00 AM EDT - 03/11/2020 08:28:00 AM EDT SKIN CANCER [facility] SKIN CANCER Patient discharged. Outpatient Attender: Brook Stearns ANP-BC 01/15/2020 12:00:00 AM EDT [facility] Outpatient Attender: Erum HIGHTOWER Main Office 01/08/2020 01:00:00 PM EDT MED[facility] ([facility]) [address] [address] 12/28/2019 12:00:00 AM EDT eCW1 ([facility]) Outpatient Attender: SEGUNDO NELSON MD 12/19/2019 10:30: 00 AM EDT [facility] 12/19/2019 12: 00:00 AM EDT eCW1 ([facility]) [address] [address] 12/18/2019 12:00:00 AM EDT eCW1 ([facility]) Outpatient Attender: Brook Stearns ANP-BCAttender: Brook Stearns RPA 12/15/2019 11:00:00 AM EDT [facility] Outpatient Attender: Brook Stearns ANP-BCAttender: Isidro Stearns RPA EMERGENCY ROOM-LABOTHPROV 12/14/2019 12:03:00 PM EDT - 12/14/2019 12:03:00 PM EDT [address] [address] 12/08/2019 12:00:00 AM EDT eCW1 ([facility]) [address] [place] [address] 12/07/2019 12:00:00 AM EDT eCW1 ([facility]) [facility] 11/16/2019 12:00:00 AM EDT eCW1 ([facility]) [facility] 10/25/2019 12:00:00 AM EST eCW1 ([facility]) [address] [address] 09/05/2019 12:00:00 AM EST eCW1 ([facility]) [facility] 08/31/2019 12:00:00 AM EST eCW1 ([facility]) Outpatient Attender: Brook Stearns RPAAttender: Brook JOY [id number] 11/28/2018 12:00:00 AM EDT - 12/08/2018 02:48:08 PM EDT Abdominal aortic aneurysm, without rupture [facility] Abdominal aortic aneurysm, without ruptu re Outpatient Attender: Brook SOW ER-RAD 11/21/2018 10:18:00 AM EDT [facility] Outpatient Attender: Brook SOW ER-LAB 10/21/2018 11:27:00 AM EST [facility] Immunizations Vaccine Date Status Description Data Source(s) influenza, recombinant, quadrIvalent,injectable, prese rvative free 06/10/2020 02:18:00 PM EDT completed eCW1 ([facility]) influenza, recombinant, quadrIvalent,injectable, prese rvative free 06/10/2020 02:18:00 PM EDT completed eCW1 ([facility]) influenza, recombinant, quadrIvalent,injectable, prese rvative free 06/10/2020 02:18:00 PM EDT completed eCW1 ([facility]) influenza, recombinant, quadrIvalent,injectable, prese rvative free 06/10/2020 02:18:00 PM EDT completed eCW1 ([facility]) influenza, recombinant, quadrIvalent,injectable, prese rvative free 06/10/2020 02:18:00 PM EDT completed eCW1 ([facility]) influenza, recombinant, quadrIvalent,injectable, prese rvative free 06/10/2020 02:18:00 PM EDT completed eCW1 ([facility]) influenza, recombinant, quadrIvalent,injectable, prese rvative free 06/10/2020 02:18:00 PM EDT completed eCW1 ([facility]) influenza, recombinant, quadrIvalent,injectable, prese rvative free 06/10/2020 02:18:00 PM EDT completed eCW1 ([facility]) Medications Medication Brand Name Start Date Product Form Dose Route Admi nistrative Instructions Pharmacy Instructions Status Indications Reaction Description Data Source(s) Transfer Bench - Transfer Bench - 09/12/2020 12:00:00 AM EST active Transfer Bench - eCW1 ([facility]) Transfer Bench - Transfer Bench - 09/12/2020 12:00:00 AM EST active Transfer Bench - eCW1 ([facility]) Transfer Bench - Transfer Bench - 09/12/2020 12:00:00 AM EST active Transfer Bench - eCW1 ([facility]) Bupropion Hydrochloride 75 MG Oral Tablet Bupropion HCL 07/10/2020 12:00:00 AM EST ORAL active [facility] ([facility]) 60 ACTUAT Fluticasone propionate 0.25 MG /ACTUAT / salmeterol 0.05 MG/ACTUAT Dry Powder Inhaler [Advair] Advair Diskus 07/10/2020 12:00:00 AM EST RESPIRATORY active [facility] ([facility]) quetiapine 25 MG Oral Tablet Quetiapine Fumarate 07/10/2020 12:00:00 AM EST ORAL active [facility] ([facility]) 60 ACTUAT Fluticasone propionate 0.25 MG /ACTUAT / salmeterol 0.05 MG/ACTUAT Dry Powder Inhaler [Advair] Advair Diskus 250-50 MCG/DOSE Advair Diskus 250-50 MCG/DOSE 06/10/2020 12:00:00 AM EDT 1.0 {puff} activ e Advair Diskus 250-50 MCG/DOSE eCW1 ([facility]) 60 ACTUAT Fluticasone propionate 0.25 MG /ACTUAT / salmeterol 0.05 MG/ACTUAT Dry Powder Inhaler [Advair] Advair Diskus 250-50 MCG/DOSE Advair Diskus 250-50 MCG/DOSE 06/10/2020 12:00:00 AM EDT 1.0 {puff} activ e Advair Diskus 250-50 MCG/DOSE eCW1 ([facility]) 60 ACTUAT Fluticasone propionate 0.25 MG /ACTUAT / salmeterol 0.05 MG/ACTUAT Dry Powder Inhaler [Advair] Advair Diskus 250-50 MCG/DOSE Advair Diskus 250-50 MCG/DOSE 06/10/2020 12:00:00 AM EDT 1.0 {puff} activ e Advair Diskus 250-50 MCG/DOSE eCW1 ([facility]) 60 ACTUAT Fluticasone propionate 0.25 MG /ACTUAT / salmeterol 0.05 MG/ACTUAT Dry Powder Inhaler [Advair] Advair Diskus 250-50 MCG/DOSE Advair Diskus 250-50 MCG/DOSE 06/10/2020 12:00:00 AM EDT 1.0 {puff} activ e Advair Diskus 250-50 MCG/DOSE eCW1 ([facility]) 60 ACTUAT Fluticasone propionate 0.25 MG /ACTUAT / salmeterol 0.05 MG/ACTUAT Dry Powder Inhaler [Advair] Advair Diskus 250-50 MCG/DOSE Advair Diskus 250-50 MCG/DOSE 06/10/2020 12:00:00 AM EDT 1.0 {puff} activ e Advair Diskus 250-50 MCG/DOSE eCW1 ([facility]) 60 ACTUAT Fluticasone propionate 0.25 MG /ACTUAT / salmeterol 0.05 MG/ACTUAT Dry Powder Inhaler [Advair] Advair Diskus 250-50 MCG/DOSE Advair Diskus 250-50 MCG/DOSE 06/10/2020 12:00:00 AM EDT 1.0 {puff} activ e Advair Diskus 250-50 MCG/DOSE eCW1 ([facility]) 60 ACTUAT Fluticasone propionate 0.25 MG /ACTUAT / salmeterol 0.05 MG/ACTUAT Dry Powder Inhaler [Advair] Advair Diskus 250-50 MCG/DOSE Advair Diskus 250-50 MCG/DOSE 06/10/2020 12:00:00 AM EDT 1.0 {puff} activ e Advair Diskus 250-50 MCG/DOSE eCW1 ([facility]) Bupropion Hydrochloride 75 MG Oral Tablet BuPROPion HC l 75 MG BuPROPion HCl 75 MG 06/10/2020 12:00:00 AM EDT active BuPROPion HCl 75 MG eCW1 ([facility]) 60 ACTUAT Fluticasone propionate 0.25 MG /ACTUAT / salmeterol 0.05 MG/ACTUAT Dry Powder Inhaler [Advair] Advair Diskus 250-50 MCG/DOSE Advair Diskus 250-50 MCG/DOSE 06/10/2020 12:00:00 AM EDT 1.0 {puff} activ e Advair Diskus 250-50 MCG/DOSE eCW1 ([facility]) Memantine hydrochloride 5 MG Oral Tablet Memantine HCl 5 MG Memantine HCl 5 MG 12/22/2019 12:00:00 AM EDT active 1 tablet eCW1 ([facility]) Memantine hydrochloride 5 MG Oral Tablet Memantine HCl 5 MG Memantine HCl 5 MG 12/22/2019 12:00:00 AM EDT 1.0 {tablet} active Memantine HCl 5 MG eCW1 ([facility]) Memantine hydrochloride 5 MG Oral Tablet Memantine HCl 5 MG Memantine HCl 5 MG 12/22/2019 12:00:00 AM EDT 1.0 {tablet} active Memantine HCl 5 MG eCW1 ([facility]) Insurance Providers Payer name Policy type / Coverage type Policy ID Covered republican ID Covered republican's relationship to macias Policy Macias Plan Information UMR [employer] [id number] WI2 [id number] MEDICARE [id number] SP [id number] [facility] [id number] HI2 [id number] MEDICARE A [id number] Self [id number] UMR [id number] H [id number] MEDICARE [id number] S [id number] [employer] MED[employer] DIVISION [id number] S [id number] [place] [id number] S [id number] UMR [id number] SPO [id number] [place] MED[employer] DIVISION [id number] S [id number] [place] [id number] S [id number] UMR [id number] SPO [id number] [place] MED[employer]ARE DIVISION [id number] S [id number] [place] [id number] S [id number] [place] [id number] WIF [id number] MEDICARE [id number] S [id number] [id number] UMR [id number] S [id number] Umr Medigap Part B [id number] Self [id number] [place] [facility] Ppo Medigap Part B [id number] Family Dependent [id number] Medicare (Part B) Medicare Primary [id number] Self [id number] [place] P[employer] [place] [employer] Medigap Part B [id number] Family De pendent [id number] Umr Medigap Part B [id number] Self [id number] [place] [employer] Ppo Medigap Part B [id number] Family Dependent [id number] Medicare (Part B) Medicare Primary [id number] Self [id number] ANSI-Commercial [id number] ANSI-Medicare Part B [id number] ANSI-Commercial [id number] MEDICARE [id number] SP [id number] C40 UMR API HE[employer]CARE [id number] WI2 [id number] ANSI-Commercial [id number] ANSI-Medicare Part B [id number] ANSI-Commercial [id number] MCRB [id number] S [id number] A [place] [id number] W[place] [id number] MEDICARE [id number] S [id number] A MEDICARE A [id number] Self [id number] A ANSI-Commercial [id number] ANSI-Medicare Part B [id number] ANSI-Commercial [id number] ANSI-Commercial [id number] ANSI-Commercial [id number] ANSI-Medicare Part B [id number] ANSI-Commercial [id number] ANSI-Commercial [id number] ANSI-Medicare Part B [id number] Umr Medigap Part B [id number] Self [id number] [place] [employer] Ppo Medigap Part B [id number] Family Dependent [id number] Medicare (Part B) Medicare Primary [id number] Self [id number] ANSI-Medicare Part B [id number] ANSI-Commercial [id number] ANSI-Commercial [id number] [place] Commercial [id number] Family Dependent [id number] Umr Commercial [id number] Family Dependent [id number] Medicare - [facility] Medicare Primary [id number] Self [id number] [place] [id number] [facility] [id number] ANSI-Medicare Part B [id number] ANSI-Commercial [id number] ANSI-Commercial [id number] ANSI-Medicare Part B [id number] [employer] U [id number] Self [id number] MEDICARE [id number] SP [id number] A [place] [facility] Ppo Medigap Part B [id number] Family Dependent [id number] Medicare (Part B) Medicare Primary [id number] Self [id number] Medicare (Part B) Medicare Primary [id number] Self [id number] [place] P[employer] Medigap Part B [id number] Family De pendent [id number] Medicare (Part B) Medicare Primary [id number] Self [id number] Medicare (Part B) Medicare Primary [id number] Self [id number] [employer] [id number] WIF [id number] [place] U [id number] Self [id number] UNAVAILABLE UNAVAILA BLE [place] HEA [id number] MEDICARE MCA [id number] A MEDICARE MCA [id number] A [place] P[employer] [place] Medigap Part B Family De pendent Medicare (Part B) Medicare Primary Self MCRB [id number] S [id number] A [employer] [id number] WI2 [id number] [place] (pr) Medigap Part B Family D[place] Primary Self [facility] Medigap Part B Family De pendent Medicare Medicare Primary Self [id number] A Problems, Conditions, and Diagnoses Code Display Name Description Problem Type Effective Dates Data Source(s) 74307075 Obstructive sleep apnea syndrome Obstructive sle ep apnea syndrome Problem 05/21/2020 12:00:00 AM EDT [facility] ) I71.4 [id number] Abdominal aortic aneurysm (AAA) without r upture Problem 12/19/2019 12:00:00 AM EDT eCW1 ([facility]) Z95.828 [id number] History of repair of aneurysm of abdominal aorta using endovascular stent graft Problem 12/19/2019 12:00:00 AM EDT eCW1 ([facility]) Z95.828 Presence of other vascular implants and grafts PRESENCE OF OTHER VASCULAR IMPLANTS AND GRAFTS Diagnosis 12/19/2019 10:30:00 AM EDT [facility] I71.4 Abdominal aortic aneurysm, without ruptu re ABDOMINAL AORTIC ANEURYSM, WITHOUT RUPTURE Diagnosis 12/19/2019 10:30:00 AM EDT [facility] l Surgeries/Procedures Procedure Description Date Indications Data Source(s) ECG ROUTINE ECG W/LEAST 12 LDS W/I&R 07/11/2020 12:00: 00 AM EST MEDENT ([facility]) ECG ROUTINE ECG W/LEAST 12 LDS W/I&R 01/08/2020 12:00: 00 AM EDT MEDENT ([facility]) Office Visit, Est Pt., Level 4 PC 12/08/2019 12:00:00 AM EDT eCW1 ([facility]) Results ID Date Data Source [id number] 06/03/2020 02:08:00 PM EDT MEDENT ([facility]) Name Value Range Interpretation Code Description Data Donna rce(s) Supporting Document(s) Hemoglobin A1c/Hemoglobin.total in Blood 7.1 MEDENT ([facility]) ID Date Data Source [id number] 06/03/2020 02:08:00 PM EDT MEDENT ([facility]) Name Value Range Interpretation Code Description Data Donna rce(s) Supporting Document(s) Triglycerides 198 MEDENT ([facility]) Cholesterol 246 MEDENT ([facility]) HDL 42 [facility] Chol/HDL Ratio 5.587 MEDENT ([facility]) Cholesterol in LDL [Mass/volume] in Serum or Plasma by calculation 16 4 MEDENT ([facility]) ID Date Data Source [id number] 06/03/2020 02:08:00 PM EDT MEDENT ([facility]) Name Value Range Interpretation Code Description Data Donna rce(s) Supporting Document(s) Albumin [Mass/volume] in Serum or Plasma 3.5 MEDENT ([facility]) Calcium [Mass/volume] in Serum or Plasma 9.9 MEDENT ([facility]) Alanine aminotransferase [Enzymatic activity/volume] in Serum or Pl asma 23 MEDENT ([facility]) Carbon dioxide, total [Moles/volume] in Serum or Plasma 33 MEDENT ([facility]) Chloride [Moles/volume] in Serum or Plasma 106 MEDENT ([facility]) Alkaline phosphatase [Enzymatic activity/volume] in Serum or Plasma 3 9 MEDENT ([facility] Potassium [Moles/volume] in Serum or Plasma 3.7 MEDENT ([facility]) Protein [Mass/volume] in Serum or Plasma 6.4 MEDENT ([facility]) Sodium 144 MEDENT ([facility] Aspartate aminotransferase [Enzymatic activity/volume] in Serum or Plasma 17 MEDENT ([facility]) Creatinine For GFR 1.23 MEDENT ([facility]) Glucose 157 70-100 MEDENT ([facility] Urea nitrogen [Mass/volume] in Serum or Plasma 13 MEDENT ([facility]) ID Date Data Source [id number] 03/13/2020 03:14:00 PM EDT [facility] laura Roberts MD, Director [id number] [place] [address] [place] [address] Name: ANNEMARIEYANI G [facility] Rec #: [id number]: [id number] Age/Sex: 80/M Attending Provider: KATJA Marie Date of Service: 03/11/20 Location: [facility] CC: KATJA Marie Specimen: [id number] Received: [id number] Status: SOLA Felix Num: [id number] Collected: [id number] Type: SURGICAL Subm Doc: KATJA Marie Collected By: KATJA Marie CLINICAL DIAGNOSIS Skin cancer GROSS DESCRIPTION:Received in formalin labeled "Yani Infantine and left ear" is a single irregular shave ofskin measuring 4 x 3 x 2 mm. The margin is inked black. The specimen is trisected. x 1cassette.teresa/teresa FINAL MICROSCOPIC DIAGNOSIS:Skin, left ear, curettage: At least squamous cell carcinoma in situ; cannot exclude invasive squamous cellcarcinoma (see comment). Diagnostic Comment:The specimen shows marked atypia of the epidermis, with frequent bizarre pleomorphic nucleiand atypical mitoses. Given the morphology it would not be surprising that there was aninvasive component, but the majority of the base of the lesion is not present, so it is notpossible to make that determination.teresa/teresa Signed (signature on file) Daryn Winn MD 03/13/20 1514 END OF REPORT Name Value Range Interpretation Code Description [facility] Supporting Document(s) ID Date Data Source [id number] 12/15/2019 12:13:00 PM EDT [facility] DATE OF EXAMINATION: 12/15/2019 11:[address] ANGIO-ABD W/WO CONTRAST HISTORY: Abdominal aortic aneurysm TECHNIQUE: This CT exam was performed using the following dose reduction techniques:automated exposure control, adjustment of mA and/or kV according to thepatient's size, and use of iterative reconstruction technique. High-resolution axial images were taken with intravenous contrast administrationand with image acquisition at peak aortic opacification and withcoronal/sagittal reformatting. FINDINGS: Lower Thorax: Unremarkable VASCULATURE:Aorta: There is a widely patent aortoiliac endograft without any definiteevidence for endoleak. The douglas abdominal aorta measures 7.3 x 6.7 cm in itsAP and coio-ss-ihjl dimensions respectively.Celiac trunk and mesenteric arteries: Celiac artery and the superior mesentericartery are patent. The inferior mesenteric artery is occludedRenal arteries: The renal arteries reveal normal opacification and are patentthroughout their courseIliac arteries: An aortoiliac endograft, widely patent. ABDOMEN: Liver: UnremarkableGallbladder and bile ducts: Multiple nonobstructive stones within thegallbladder lumenPancreas: UnremarkableSpleen: UnremarkableAdrenals: UnremarkableKidneys and ureters: UnremarkableStomach and bowel: Moderate sigmoid diverticulosis without inflammatory changesAppendix: No appendicitis No free fluid or free air IMPRESSION: Widely patent aortoiliac endograft without endoleak. The douglas abdominal aortameasures 7.2 x 6.7 cm in its AP and gmva-ym-iogs dimensions. Severe degenerative changes of lumbosacral spine. Electronically signed in PS360 by: Haroon Cazares M.D. 12/15/2019 11:40 EDT Name Value Range Interpretation Code Description Data [facility] rce(s) Supporting Document(s) ID Date Data Source [id number] 12/14/2019 02:09:00 PM EDT [facility] FAX [phone] Name Value Range Interpretation Code Description Data Donna rce(s) Supporting Document(s) GLUCOSE 232 mg/dL 74-106 H [facility] BLOOD UREA NITROGEN 20 mg/dL 7-18 H [facility] ital CREATININE 1.2 mg/dL 0.7-1.3 [facility] SODIUM 143 mmol/L 136-145 [facility] POTASSIUM 3.9 mmol/L 3.5-5.1 [facility] CHLORIDE 105 mmol/L 98-107 [facility] CO2 31 mmol/L 21-32 [facility] CALCIUM 9.8 mg/dL 8.5-10.1 [facility] ANION GAP 7.0 mmol/L 5-12 [facility] GLOMERULAR FILTRATION RATE 58 mL/min [facility] GFR IS CALCULATED IN mL/min/1.73m2 ADNIELLE L FUNCTION: >90MILDLY DECREASED: 60-89MILDY TO MODERATELY DECREASED: 45-59 MODERATELY TO SEVERELY DECREASED: 30-44SEVERELY DECREASED: 15-29RENAL FAILURE: <15 ID Date Data Source [id number] 12/08/2019 12:59:00 PM EDT MEDENT ([facility]) Name Value Range Interpretation Code Description Data Donna rce(s) Supporting Document(s) Hemoglobin A1c/Hemoglobin.total in Blood 7.3 MED[facility] ([facility]) ID Date Data Source [id number] 12/08/2019 12:59:00 PM EDT MEDENT ([facility]) Name Value Range Interpretation Code Description Data Donna rce(s) Supporting Document(s) Cholesterol 248 [facility] ([facility]) Triglycerides 203 [facility] ([facility]) Cholesterol in LDL [Mass/volume] in Serum or Plasma by calculation 16 6 [facility] ([facility]) HDL 41 [facility] Chol/HDL Ratio 6.048 [facility] ([facility]) ID Date Data Source [id number] 12/08/2019 12:59:00 PM EDT MED[facility] ([facility]) Name Value Range Interpretation Code Description Data Donna rce(s) Supporting Document(s) Albumin [Mass/volume] in Serum or Plasma 3.6 [facility] ([facility]) Alanine aminotransferase [Enzymatic activity/volume] in Serum or Pl asma 20 [facility] ([facility]) Calcium [Mass/volume] in Serum or Plasma 9.7 [facility] ([facility]) Alkaline phosphatase [Enzymatic activity/volume] in Serum or Plasma 4 1 [facility] ([facility]) Carbon dioxide, total [Moles/volume] in Serum or Plasma 32 [facility] ([facility]) Chloride [Moles/volume] in Serum or Plasma 106 [facility] ([facility]) Protein [Mass/volume] in Serum or Plasma 6.6 [facility] ([facility]) Sodium 142 [facility] Potassium [Moles/volume] in Serum or Plasma 3.8 [facility] ([facility]) Urea nitrogen [Mass/volume] in Serum or Plasma 17 [facility] ([facility]) Aspartate aminotransferase [Enzymatic activity/volume] in Serum or Plasma 15 [facility] ([facility]) Creatinine For GFR 1.16 [facility] ([facility]) Glucose 122 70-100 MEDENT ([facility]) Procedure Social History Code Duration Value Status Description Data Source(s ) Smoking 07/11/2020 12:00:00 AM EST Patient is a former smoker completed Patient is a former smoker [facility] ([facility]) Smoking 05/21/2020 12:00:00 AM EDT Patient is a former smoker completed Patient is a former smoker MEDENT ([facility] ) Vital Signs ID Date Data Source UNK Name Value Range Interpretation Code Description Data Source(s) Diastolic blood pressure 80 mm[Hg] 80 mm[Hg] eCW1 ([facility]) Systolic blood pressure 160 mm[Hg] 160 mm[Hg] e CW1 ([facility]) Body temperature 96.8 [degF] 96.8 [degF] eCW1 ( [facility]) Respiratory rate 18 /min 18 /min eCW1 ([facility]) Heart rate 72 /min 72 /min eCW1 ([facility]) Body mass index (BMI) [Ratio] 33.22 kg/m2 33.22 kg/m2 eCW1 ([facility]) Body height 69 [in_i] 69 [in_i] eCW1 ([facility]) Body weight 225 [lb_av] 225 [lb_av] eCW1 ([facility]) Diastolic blood pressure 64 mm[Hg] 64 mm[Hg] MEDENT ([facility]) sitting Systolic blood pressure 120 mm[Hg] 120 mm[Hg] M EDENT ([facility]) sitting Diastolic blood pressure 68 mm[Hg] 68 mm[Hg] [facility] ([facility]) sitting, large cuff Systolic blood pressure 122 mm[Hg] 122 mm[Hg] M EDENT ([facility]) sitting, large cuff Respiratory rate 16 /min 16 /min [facility] ( [facility]) Heart rate 60 /min 60 /min MED[facility] ([facility]) Regular Body mass index (BMI) [Ratio] 38.4 kg/m2 38.4 k g/m2 MED[facility] ([facility]) Body height 64 [in_i] 64 [in_i] MED[facility] ([facility]) 5'4" Body weight 224.00 [lb_av] 224.00 [lb_av] MEDEN T ([facility]) Diastolic blood pressure 92 mm[Hg] 92 mm[Hg] eCW1 ([facility]) Systolic blood pressure 150 mm[Hg] 150 mm[Hg] e CW1 ([facility]) Body temperature 97.6 [degF] 97.6 [degF] eCW1 ( [facility]) Respiratory rate 18 /min 18 /min eCW1 ([facility]) Heart rate 64 /min 64 /min eCW1 ([facility]) Body mass index (BMI) [Ratio] 33.22 kg/m2 33.22 kg/m2 eCW1 ([facility]) Body height 69 [in_i] 69 [in_i] eCW1 ([facility]) Body weight 225 [lb_av] 225 [lb_av] eCW1 ([facility]) Systolic blood pressure 126 mm[Hg] 126 mm[Hg] M EDENT ([facility], ) Diastolic blood pressure 84 mm[Hg] 84 mm[Hg] MEDENT ([facility], ) Heart rate 88 /min 88 /min [facility] ([facility]) Oxygen saturation in Arterial blood by Pulse oximetry 94 % 94 % [facility] ([facility]) Body temperature 97.5 [degF] 97.5 [degF] [facility] ([facility]) Body height 64 [in_i] 64 [in_i] [facility] ([facility]) 5'4" Body weight 229.00 [lb_av] 229.00 [lb_av] MEDEN T ([facility]) Body mass index (BMI) [Ratio] 39.3 kg/m2 39.3 k g/m2 [facility] ([facility]) [place] body weight 130 [lb_av] 130 [lb_av] MEDEN T ([facility]) Body weight 103.874 kg 103.874 kg [facility] ([facility]) Diastolic blood pressure 74 mm[Hg] 74 mm[Hg] MEDENT ([facility]) sitting Systolic blood pressure 132 mm[Hg] 132 mm[Hg] M EDENT ([facility]) sitting Diastolic blood pressure 74 mm[Hg] 74 mm[Hg] MEDENT ([facility]) sitting, large cuff Systolic blood pressure 134 mm[Hg] 134 mm[Hg] M EDENT ([facility]) sitting, large cuff Respiratory rate 16 /min 16 /min MEDENT ( [facility]) Heart rate 56 /min 56 /min [facility] ([facility]) Regular Body mass index (BMI) [Ratio] 38.1 kg/m2 38.1 k g/m2 MED[facility] ([facility]) Body height 64 [in_i] 64 [in_i] MEDENT ([facility]) 5'4" Body weight 222.00 [lb_av] 222.00 [lb_av] MEDEN T ([facility]) Body height 65 [in_us] 65 [in_us] eCW1 ([facility]) Body weight Measured 225.6 [lb_av] 225.6 [lb_av ] eCW1 ([facility]) Body mass index (BMI) [Ratio] 37.54 kg/m2 37.54 kg/m2 eCW1 ([facility]) Heart rate 72 /min 72 /min eCW1 ([facility]) Respiratory rate 18 /min 18 /min eCW1 ([facility]) Deprecated Oxygen saturation in Capillary blood by Oximetry 97 % 97 % eCW1 ([facility]) Diastolic blood pressure 80 mm[Hg] 80 mm[Hg] eCW1 ([facility]) Systolic blood pressure 132 mm[Hg] 132 mm[Hg] e CW1 ([facility]) Body temperature 97.0 [degF] 97.0 [degF] eCW1 ( [facility]) Heart rate 68 /min 68 /min eCW1 ([facility]) Body mass index (BMI) [Ratio] 32.01 kg/m2 32.01 kg/m2 eCW1 ([facility]) Body height 69 [in_us] 69 [in_us] eCW1 ([facility]) Body weight Measured 216.8 [lb_av] 216.8 [lb_av ] eCW1 ([facility]) ID Date Data Source [id number] 12/15/2019 07:52:58 AM EDT [facility] Name Value Range Interpretation Code Description Data Source(s) WEIGHT RECORDED 210 lb 210 lb [facility] Body height Measured 66 in 66 in [facility] Patient Treatment Plan of Care Planned Activity Planned Date Details Description Data Source (s) Transfer Bench - 09/12/2020 12:00:00 AM EST eCW1 ([facility]) Transfer Bench - 09/12/2020 12:00:00 AM EST eCW1 ([facility]) Transfer Bench - 09/12/2020 12:00:00 AM EST eCW1 ([facility]) 60 ACTUAT Fluticasone propionate 0.25 MG /ACTUAT / salmeterol 0.05 MG/ACTUAT Dry Powder Inhaler [Advair] 06/10/2020 12:00:00 AM EDT eCW1 ([facility]) Bupropion Hydrochloride 75 MG Oral Tablet 06/10/2020 12:00:00 AM ED T eCW1 ([facility]) Memantine hydrochloride 5 MG Oral Tablet 12/22/2019 12:00:00 AM EDT eCW1 ([facility]) Memantine hydrochloride 5 MG Oral Tablet 12/22/2019 12:00:00 AM EDT eCW1 ([facility]) Memantine hydrochloride 5 MG Oral Tablet 12/22/2019 12:00:00 AM EDT eCW1 ([facility])
--- NOTE | 2020-09-25 14:15 | REP ---
INDICATION: DYSPNEA/COUGH. COMPARISON: 08/28/2005. TECHNIQUE: SINGLE PORTABLE AP VIEW OF THE CHEST WAS PERFORMED. FINDINGS: There is mild bibasilar fibro atelectatic change. No acute infiltrate is seen. The heart is at the upper limits of normal in size. There is some tortuosity of the thoracic aorta. The mediastinal silhouette is otherwise unremarkable. There are degenerative changes at both shoulder joints. There are degenerative changes of the spine. IMPRESSION: NO ACUTE PULMONARY DISEASE.Chronic findings as above. <Electronically signed by Sam Burns > 09/25/20 [id number]
[2020-09-25] MEDS ORDERED: ISOVUE-370 76% 100ML VIAL As Ordered ONE (15:01)
--- NOTE | 2020-09-25 15:42 | REP ---
INDICATION: sob. COMPARISON: None. TECHNIQUE: Contrast dose: 75 ML of Isovue [address] technique: Helical scanning is acquired and overlapping 1.5 mm and contiguous 3 mm axial images are reformatted. In addition, maximum intensity projection and multiplanar re-formation images are generated in sagittal and coronal imaging projections. FINDINGS: There is good opacification in the pulmonary arterial tree. There is no evidence of vessel cut off or filling defect to suggest pulmonary embolus. Homogeneous opacity is seen in the thoracic aorta. There is no evidence of aneurysm or dissection. Lung window settings demonstrate demonstrate a granulomatous calcification in the superior segment of the left lower lobe posteriorly. There is another granulomatous calcification in the right upper lobe posteriorly. No significant pulmonary nodule is appreciated. No infiltrate or mass lesion is observed. There is no evidence of pleural or pericardial effusion. In the upper abdomen, a normal right adrenal gland is seen. There are 2 small lipomatous nodules in the left adrenal gland. 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 These are 12 in 13 mm in greatest diameter. Calcified gallstones are seen in the gallbladder. The visualized upper abdominal structures are otherwise unremarkable. No hilar or mediastinal mass or adenopathy is observed. Minimal vascular calcification is seen. No bony destructive lesion is seen. IMPRESSION: No CT evidence of pulmonary embolus. Cholelithiasis. <Electronically signed by Douglas Kevin > 09/25/20 [id number]
[2020-09-25] MEDS ORDERED: PRED10TA2 PO (15:58)
[2020-09-25] MEDS ORDERED: HumuLIN R (REGULAR) INSULIN (NovoLIN R) **100U/ML** PER UNIT IV ONE (16:00)
[2020-09-25 16:21] VITALS: BP 161/74
--- NOTE | 2020-09-26 07:37 | ECGEPIP ---
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
== END 2020-09-25 16:23 | disposition home or self-care (01) ==
LOC: M ED 12:40 → EDBD 12:40 → M ED 16:23
DX: J45.901 Unspecified asthma with (acute) exacerbation (principal); E11.9 Type 2 diabetes mellitus without complications; I10 Essential (primary) hypertension; Z79.899 Other long term (current) drug therapy; Z79.82 Long term (current) use of aspirin; Z88.8 Allergy status to other drugs, medicaments and biological substances; Z91.018 Allergy to other foods; Z87.891 Personal history of nicotine dependence
CPT/HCPCS: 36415; 71045; 71275; 80048; 80076; 82550; 82553; 82803; 83880; 84484; 85025; 85379; 85610; 87486; 87581; 87633; 87798; 93005; 93041; 94640; 94664; 96374; 99285; Q9967

== ENCOUNTER → 2020-11-22 | Outpatient (CLI) | payer MEDICARE, OTHER ==
[~2020-11-22] MED LIST changes: +PRED10TA2 PO
[2020-11-22 13:58] LABS: ALBUMIN 3.4 GM/DL (3.2-5.2); ALT/SGPT 26 U/L (12-78); BILIRUBIN,TOTAL 0.3 MG/DL (0.2-1.0); BLOOD UREA NITROGEN 16 MG/DL (7-18); CALCIUM LEVEL 9.9 MG/DL (8.8-10.2); CARBON DIOXIDE LEVEL 36 MEQ/L (21-32); CHLORIDE LEVEL 108 MEQ/L (98-107); CHOLESTEROL LEVEL 247 MG/DL (<200); CHOLESTEROL RISK RATIO 5.613 (<5); CREATININE FOR GFR 1.14 MG/DL (0.70-1.30); GLOMERULAR FILTRATION RATE > 60.0 (>35); GLUCOSE, FASTING 189 MG/DL (70-100); HDL CHOLESTEROL 44 MG/DL (>40); LDL CHOLESTEROL 167 MG/DL (<100); NON-HDL-C 203 MG/DL; POTASSIUM SERUM 4.2 MEQ/L (3.5-5.1); SODIUM LEVEL 145 MEQ/L (136-145); TOTAL PROTEIN 6.2 GM/DL (6.4-8.2); TRIGLYCERIDES LEVEL 178 MG/DL (<150)
[2020-11-22 13:59] LABS: TOTAL 25(OH) VITAMIN D 69.7 NG/ML (30.0-100.0)
[2020-11-22 14:31] LABS: HEMOGLOBIN A1c 9.4 %
== END ==
LOC: M WUC 10:20
PROVIDERS: ATTEND Nurse Practitioner Adult Health
DX: R53.81 Other malaise (principal); Z79.899 Other long term (current) drug therapy

== ENCOUNTER → 2020-12-05 | Outpatient (CLI) | payer MEDICARE, OTHER ==
[~2020-12-05] MED LIST changes: +ISOVUE-300 61% 50ML VIAL As Ordered ONE; +LIDOCAINE 1% MDV 20ML VIAL As Ordered ONE; +TRIAMCINOLONE ACETONIDE SUSP 40 MG/ML VIAL (J3301) As Ordered ONE
--- NOTE | 2020-12-05 16:41 | REP ---
INDICATION: OA LT SHOULDER. COMPARISON: None. TECHNIQUE: The procedure was performed under the direct supervision of Dr. Burns. The benefits and risks including but not limited to pain infection and bleeding and anaphylaxis were explained to the patient and informed consent was obtained. The left glenohumeral joint space was localized using fluoroscopic guidance. The skin was prepped and draped in a sterile fashion. 1% lidocaine was used as a local anesthetic. Using fluoroscopic guidance a 22 gauge spinal needle was inserted and advanced into the joint. 1 cc of Isovue-300 was injected to verify placement. 6 cc of a solution containing 5 cc of 1% lidocaine and 1 cc of Kenalog 40 mg was injected. The needle was then removed.. The patient tolerated the procedure well and there were no immediate complications. Less than 6 seconds of fluoro time was utilized for this procedure. FINDINGS: None IMPRESSION: Fluoro guidance for left shoulder injection. <Electronically signed by Esteban Roberts > 12/05/20 [id number] <Electronically signed by Sam Burns > 12/05/20 [id number]
== END ==
LOC: M RADPRO 10:37
PROVIDERS: ATTEND Physician Assistant Surgical
DX: M19.012 Primary osteoarthritis, left shoulder (principal)

== ENCOUNTER → 2021-06-02 | Outpatient (CLI) | payer MEDICARE, OTHER ==
[~2021-06-02] MED LIST changes: -ISOVUE-300 61% 50ML VIAL As Ordered ONE; -LIDOCAINE 1% MDV 20ML VIAL As Ordered ONE; -TRIAMCINOLONE ACETONIDE SUSP 40 MG/ML VIAL (J3301) As Ordered ONE
[2021-06-02 14:34] LABS: ALBUMIN 3.3 GM/DL (3.2-5.2); BILIRUBIN,TOTAL 0.6 MG/DL (0.2-1.0); CALCIUM LEVEL 9.9 MG/DL (8.8-10.2); CHOLESTEROL RISK RATIO 5.418 (<5); CREATININE FOR GFR 1.27 MG/DL (0.70-1.30); GLOMERULAR FILTRATION RATE 57.9 (>35); MAGNESIUM LEVEL 1.6 MG/DL (1.8-2.4); MALB URINE SIEMENS 41.4 MG/L; MAU/CREAT RATIO 28.3 MCG/MG (0.0-30.0); TOTAL 25(OH) VITAMIN D 86.7 NG/ML (30.0-100.0); TOTAL PROTEIN 6.4 GM/DL (6.4-8.2)
[2021-06-02 15:43] LABS: HEMOGLOBIN A1c 7.1 %
== END ==
LOC: M WUC 10:05
PROVIDERS: ATTEND Nurse Practitioner Adult Health
DX: R53.81 Other malaise (principal); I10 Essential (primary) hypertension; E11.9 Type 2 diabetes mellitus without complications; R41.3 Other amnesia; Z79.899 Other long term (current) drug therapy

== ENCOUNTER → 2021-07-03 | Outpatient (CLI) | payer MEDICARE, OTHER ==
--- NOTE | 2021-07-03 15:12 | PFTRPT ---
Height: 64.00 Inches Weight: 212.00 Lbs BSA: 2.01 Diagnosis: R06.00 DATE: 07/03/2021 ORDERING PHYSICIAN: Ian Nguyen DO, FCCP Pre and post bronchodilator studies have excellent technical quality. Forced vital capacity is reduced. FEV1 is in proportion. Obstructive index is therefore normal. Expiratory limit of the flow-volume loop does suggest at least some degree of nonspecific flow rate limitation. No significant bronchodilator response is identified. Total lung capacity is normal. Residual volume is borderline for air trapping. Diffusing capacity although reduced does correct for alveolar volume. Hemoglobin is acceptable at 13. Airway resistance and conductance are normal. IMPRESSION: Nonspecific flow rate limitation requires clinical correlation. MTDD
[2021-07-04 15:09] LABS: MYCOPLASMA PNEUMONIAE IgG 193 U/mL (0-99); MYCOPLASMA PNEUMONIAE IgM <770 U/mL (0-769)
== END ==
LOC: M LAB 14:09 → M CARPUL 14:09
PROVIDERS: ATTEND Internal Medicine Pulmonary Disease
DX: R06.00 Dyspnea, unspecified (principal)

== ENCOUNTER → 2021-07-03 | Outpatient (REF) | payer MEDICARE, OTHER | LOC: M LAB REF 15:43 | PROVIDERS: ATTEND Internal Medicine Pulmonary Disease | DX: R06.00 Dyspnea, unspecified (principal) ==

== ENCOUNTER → 2021-08-18 | Outpatient (CLI) | payer MEDICARE, OTHER ==
[~2021-08-18] MED LIST changes: +ISOVUE-300 61% 50ML VIAL As Ordered ONE; +LIDOCAINE 1% MDV 20ML VIAL As Ordered ONE; +methylPREDNISolone SUSP 40MG/ML 1ML VIAL (DEPO MEDROL) As Ordered ONE
== END ==
LOC: M RADPRO 13:42
PROVIDERS: ATTEND Physician Assistant Surgical
DX: M19.012 Primary osteoarthritis, left shoulder (principal)
CPT/HCPCS: 20610; 77002; J1030; Q9967

== ENCOUNTER → 2021-12-05 | Outpatient (CLI) | payer MEDICARE, OTHER ==
[~2021-12-05] MED LIST changes: -ISOVUE-300 61% 50ML VIAL As Ordered ONE; -LIDOCAINE 1% MDV 20ML VIAL As Ordered ONE; -OLOP0.1D OU; +OLOP5DRO16 OU; -methylPREDNISolone SUSP 40MG/ML 1ML VIAL (DEPO MEDROL) As Ordered ONE
[2021-12-05 11:22] LABS: HEMOGLOBIN A1c 7.3 %
[2021-12-05 11:36] LABS: ALBUMIN 3.2 GM/DL (3.2-5.2); ALT/SGPT 23 U/L (12-78); BILIRUBIN,TOTAL 0.6 MG/DL (0.2-1.0); BLOOD UREA NITROGEN 23 MG/DL (7-18); CALCIUM LEVEL 9.2 MG/DL (8.8-10.2); CARBON DIOXIDE LEVEL 32 MEQ/L (21-32); CHLORIDE LEVEL 106 MEQ/L (98-107); CHOLESTEROL LEVEL 191 MG/DL (<200); CHOLESTEROL RISK RATIO 4.775 (<5); CREATININE FOR GFR 1.16 MG/DL (0.70-1.30); GLOMERULAR FILTRATION RATE > 60.0 (>35); GLUCOSE, FASTING 191 MG/DL (70-100); HDL CHOLESTEROL 40 MG/DL (>40); LDL CHOLESTEROL 120 MG/DL (<100); MAGNESIUM LEVEL 1.7 MG/DL (1.8-2.4); NON-HDL-C 151 MG/DL; POTASSIUM SERUM 3.7 MEQ/L (3.5-5.1); SODIUM LEVEL 141 MEQ/L (136-145); TOTAL PROTEIN 5.8 GM/DL (6.4-8.2); TRIGLYCERIDES LEVEL 154 MG/DL (<150)
[2021-12-05 11:44] LABS: TOTAL 25(OH) VITAMIN D 73.8 NG/ML (30.0-100.0); VITAMIN B12 LEVEL 847 PG/ML (247-911)
[2021-12-05 11:50] LABS: MALB URINE SIEMENS 54.5 MG/L; MAU/CREAT RATIO 21.8 MCG/MG (0.0-30.0)
== END ==
LOC: M WUC 10:00
PROVIDERS: ATTEND Nurse Practitioner Adult Health
DX: E55.9 Vitamin D deficiency, unspecified (principal); E11.9 Type 2 diabetes mellitus without complications; I10 Essential (primary) hypertension; R41.3 Other amnesia; Z79.899 Other long term (current) drug therapy

== ENCOUNTER → 2022-06-09 | Outpatient (CLI) | payer MEDICARE, OTHER ==
[~2022-06-09] MED LIST changes: +INDA1.253 PO; -INDA125TA PO
[2022-06-09 18:57] LABS: ALBUMIN 3.5 GM/DL (3.2-5.2); ALT/SGPT 20 U/L (12-78); BILIRUBIN,TOTAL 0.5 MG/DL (0.2-1.0); BLOOD UREA NITROGEN 15 MG/DL (7-18); CALCIUM LEVEL 9.2 MG/DL (8.8-10.2); CARBON DIOXIDE LEVEL 31 MEQ/L (21-32); CHLORIDE LEVEL 106 MEQ/L (98-107); CHOLESTEROL LEVEL 224 MG/DL (<200); CHOLESTEROL RISK RATIO 4.571 (<5); CREATININE FOR GFR 1.09 MG/DL (0.70-1.30); GLOMERULAR FILTRATION RATE > 60.0 (>35); GLUCOSE, FASTING 186 MG/DL (70-100); HDL CHOLESTEROL 49 MG/DL (>40); LDL CHOLESTEROL 145 MG/DL (<100); NON-HDL-C 175 MG/DL; POTASSIUM SERUM 4.2 MEQ/L (3.5-5.1); SODIUM LEVEL 141 MEQ/L (136-145); TOTAL PROTEIN 6.3 GM/DL (6.4-8.2); TRIGLYCERIDES LEVEL 151 MG/DL (<150)
[2022-06-09 19:38] LABS: TOTAL 25(OH) VITAMIN D 85.2 NG/ML (30.0-100.0)
== END ==
LOC: M WUC 11:48
PROVIDERS: ATTEND Nurse Practitioner Adult Health
DX: E11.9 Type 2 diabetes mellitus without complications (principal); E78.2 Mixed hyperlipidemia

== ENCOUNTER → 2022-12-15 | Outpatient (CLI) | payer MEDICARE, OTHER ==
[~2022-12-15] MED LIST changes: +ASPI-655 PO; -ASPI1CHW3 PO; -OLOP5DRO16 OU; +OLOP5DRO17 OU
[2022-12-15 16:57] LABS: THYROID STIMULATING HORMONE 2.283 uIU/ML (0.55-4.78)
[2022-12-15 16:58] LABS: TOTAL 25(OH) VITAMIN D 88.9 NG/ML (20.0-100.0)
[2022-12-15 17:15] LABS: ALBUMIN 3.1 G/DL (3.2-5.2); ALKALINE PHOSPHATASE 31 U/L (46-116); ALT/SGPT 17 U/L (7.0-40); AST/SGOT 11 U/L (<34); BILIRUBIN,TOTAL 0.5 MG/DL (0.3-1.2); BLOOD UREA NITROGEN 16 MG/DL (9-23); CALCIUM LEVEL 9.5 MG/DL (8.3-10.6); CARBON DIOXIDE LEVEL 33 MMOL/L (20-31); CHLORIDE LEVEL 109 MMOL/L (98-107); CHOLESTEROL LEVEL 194 MG/DL (<200); CHOLESTEROL RISK RATIO 4.83 (<5); CREATININE FOR GFR 0.98 MG/DL (0.70-1.30); GLOMERULAR FILTRATION RATE > 60.0 (>35); GLUCOSE, FASTING 143 MG/DL (74-106); HDL CHOLESTEROL 40.1 MG/DL (>40); LDL CHOLESTEROL 128.9 MG/DL (<100); NON-HDL-C 153.9 MG/DL; POTASSIUM SERUM 4.2 MMOL/L (3.5-5.1); SODIUM LEVEL 144 MMOL/L (136-145); TOTAL PROTEIN 5.6 G/DL (5.7-8.2); TRIGLYCERIDES LEVEL 125 MG/DL (<150)
[2022-12-15 17:25] LABS: HEMOGLOBIN A1c 6.8 % (4.0-6.0)
== END ==
LOC: M WUC 12:44
PROVIDERS: ATTEND Nurse Practitioner Adult Health
DX: E11.9 Type 2 diabetes mellitus without complications (principal); E55.9 Vitamin D deficiency, unspecified; E78.2 Mixed hyperlipidemia

== ENCOUNTER → 2023-04-05 | Outpatient (CLI) | payer MEDICARE, OTHER ==
[~2023-04-05] MED LIST changes: -CARD4TAB2 PO; +DOXA4TAB94 PO
[2023-04-05 20:17] LABS: BASO % 0.6 % (0.0-1.0); EOS # 0.1 10^3/uL (0.0-0.5); EOS % 1.4 % (0.0-3.0); HEMATOCRIT 40.9 % (42.0-52.0); HEMOGLOBIN 13.1 g/dl (13.5-17.5); LYMPH # 1.2 10^3/uL (1.5-5.0); LYMPH % 23.3 % (24.0-44.0); MEAN CORPUSCULAR HEMOGLOBIN 29.2 pg (27.0-33.0); MEAN CORPUSCULAR VOLUME 91.1 fl (80.0-96.0); MONO # 0.4 10^3/uL (0.0-0.8); MONO % 7.2 % (2.0-8.0); NEUTROPHILS # 3.3 10^3/uL (1.5-8.5); NEUTROPHILS % 66.9 % (36.0-66.0); PLATELET COUNT, AUTOMATED 150 10^3/uL (150-450); RED BLOOD COUNT 4.49 10^6/uL (4.30-6.10)
[2023-04-05 20:24] LABS: ALBUMIN 3.4 G/DL (3.2-5.2); ALKALINE PHOSPHATASE 38 U/L (46-116); ALT/SGPT 16 U/L (7.0-40); AST/SGOT 10 U/L (<34); BILIRUBIN,TOTAL 0.7 MG/DL (0.3-1.2); BLOOD UREA NITROGEN 16 MG/DL (9-23); CALCIUM LEVEL 10.2 MG/DL (8.3-10.6); CARBON DIOXIDE LEVEL 31 MMOL/L (20-31); CHLORIDE LEVEL 104 MMOL/L (98-107); CREATININE FOR GFR 0.94 MG/DL (0.70-1.30); GLOMERULAR FILTRATION RATE > 60.0 (>35); GLUCOSE, FASTING 134 MG/DL (74-106); POTASSIUM SERUM 3.7 MMOL/L (3.5-5.1); RHEUMATOID FACTOR QUANT 5.7 IU/ML (<14); SODIUM LEVEL 140 MMOL/L (136-145); TOTAL PROTEIN 6.3 G/DL (5.7-8.2)
[2023-04-05 20:26] LABS: THYROID STIMULATING HORMONE 2.742 uIU/ML (0.55-4.78); TOTAL 25(OH) VITAMIN D 78.5 NG/ML (20.0-100.0)
[2023-04-05 20:27] LABS: VITAMIN B12 LEVEL 1409 PG/ML (211-911)
[2023-04-05 20:32] LABS: ERYTHROCYTE SEDIMENTATION RATE 8 mm/hr (0-20)
== END ==
LOC: M WUC 14:59
PROVIDERS: ATTEND Psychiatry & Neurology Neurology
DX: G31.84 Mild cognitive impairment of uncertain or unknown etiology (principal); Z79.899 Other long term (current) drug therapy

== ENCOUNTER → 2023-06-17 | Outpatient (CLI) | payer MEDICARE, OTHER ==
[2023-06-17 18:51] LABS: THYROID STIMULATING HORMONE 4.236 uIU/ML (0.55-4.78)
[2023-06-17 18:52] LABS: TOTAL 25(OH) VITAMIN D 70.7 NG/ML (20.0-100.0)
[2023-06-17 18:54] LABS: ALBUMIN 3.6 G/DL (3.2-5.2); ALKALINE PHOSPHATASE 41 U/L (46-116); ALT/SGPT 14 U/L (7.0-40); AST/SGOT 14 U/L (<34); BILIRUBIN,TOTAL 0.8 MG/DL (0.3-1.2); BLOOD UREA NITROGEN 16 MG/DL (9-23); CALCIUM LEVEL 9.8 MG/DL (8.3-10.6); CARBON DIOXIDE LEVEL 29 MMOL/L (20-31); CHLORIDE LEVEL 105 MMOL/L (98-107); CHOLESTEROL LEVEL 214 MG/DL (<200); CHOLESTEROL RISK RATIO 3.93 (<5); CREATININE FOR GFR 1.02 MG/DL (0.70-1.30); GLOMERULAR FILTRATION RATE > 60.0 (>35); GLUCOSE, FASTING 167 MG/DL (74-106); HDL CHOLESTEROL 54.4 MG/DL (>40); LDL CHOLESTEROL 132.6 MG/DL (<100); NON-HDL-C 159.6 MG/DL; POTASSIUM SERUM 3.9 MMOL/L (3.5-5.1); SODIUM LEVEL 144 MMOL/L (136-145); TOTAL PROTEIN 6.2 G/DL (5.7-8.2); TRIGLYCERIDES LEVEL 135 MG/DL (<150)
[2023-06-17 19:09] LABS: HEMOGLOBIN A1c 6.7 % (4.0-6.0)
== END ==
LOC: M WUC 12:45
PROVIDERS: ATTEND Nurse Practitioner Adult Health
DX: E11.9 Type 2 diabetes mellitus without complications (principal); E78.2 Mixed hyperlipidemia; E55.9 Vitamin D deficiency, unspecified

== ENCOUNTER → 2023-10-01 | Outpatient (CLI) | payer MEDICARE, OTHER ==
[~2023-10-01] MED LIST changes: +IRBE150T27 PO; -IRBE150T7 PO
[2023-10-01 19:02] LABS: THYROID STIMULATING HORMONE 2.977 uIU/ML (0.55-4.78)
== END ==
LOC: M WUC 12:26
PROVIDERS: ATTEND Psychiatry & Neurology Neurology
DX: D35.2 Benign neoplasm of pituitary gland (principal)

== ENCOUNTER → 2023-11-19 | Outpatient (CLI) | payer MEDICARE, OTHER ==
[2023-11-19 13:21] LABS: HEMOGLOBIN A1c 8.4 % (4.0-6.0)
[2023-11-19 13:25] LABS: TOTAL 25(OH) VITAMIN D 88.6 NG/ML (20.0-100.0)
[2023-11-19 13:27] LABS: ALBUMIN 3.3 G/DL (3.2-5.2); ALKALINE PHOSPHATASE 41 U/L (46-116); ALT/SGPT 12 U/L (7.0-40); AST/SGOT 9 U/L (<34); BILIRUBIN,TOTAL 0.5 MG/DL (0.3-1.2); BLOOD UREA NITROGEN 20 MG/DL (9-23); CALCIUM LEVEL 9.6 MG/DL (8.3-10.6); CARBON DIOXIDE LEVEL 32 MMOL/L (20-31); CHLORIDE LEVEL 106 MMOL/L (98-107); CHOLESTEROL LEVEL 194 MG/DL (<200); CHOLESTEROL RISK RATIO 4.72 (<5); CREATININE FOR GFR 0.99 MG/DL (0.70-1.30); GLOMERULAR FILTRATION RATE > 60.0 (>35); GLUCOSE, FASTING 172 MG/DL (74-106); HDL CHOLESTEROL 41.1 MG/DL (>40); LDL CHOLESTEROL 120.7 MG/DL (<100); NON-HDL-C 152.9 MG/DL; POTASSIUM SERUM 4.4 MMOL/L (3.5-5.1); SODIUM LEVEL 144 MMOL/L (136-145); TOTAL PROTEIN 5.9 G/DL (5.7-8.2); TRIGLYCERIDES LEVEL 161 MG/DL (<150)
== END ==
LOC: M WUC 10:50
PROVIDERS: ATTEND Nurse Practitioner Adult Health
DX: E11.9 Type 2 diabetes mellitus without complications (principal); E55.9 Vitamin D deficiency, unspecified; E78.2 Mixed hyperlipidemia

== ENCOUNTER → 2023-12-28 | Outpatient (CLI) | payer MEDICARE, OTHER ==
[2023-12-28 17:18] LABS: BLOOD UREA NITROGEN 13 MG/DL (9-23); CREATININE FOR GFR 0.91 MG/DL (0.70-1.30); GLOMERULAR FILTRATION RATE > 60.0 (>35)
== END ==
LOC: M WUC 13:58
PROVIDERS: ATTEND Psychiatry & Neurology Neurology
DX: I10 Essential (primary) hypertension (principal)

== ENCOUNTER → 2024-01-08 | Outpatient (CLI) | payer MEDICARE, OTHER | LOC: M EKG 11:00 | PROVIDERS: ATTEND Physician Assistant | DX: I49.5 Sick sinus syndrome (principal); I44.0 Atrioventricular block, first degree; R00.1 Bradycardia, unspecified ==

== ENCOUNTER → 2024-04-03 | Outpatient (CLI) | payer MEDICARE, OTHER | LOC: M WUC 13:16 | PROVIDERS: ATTEND Internal Medicine Endocrinology, Diabetes & Metabolism | DX: D49.7 Neoplasm of unspecified behavior of endocrine glands and other parts of nervous system (principal) ==

== ENCOUNTER → 2024-05-25 | Outpatient (CLI) | payer MEDICARE, OTHER ==
[2024-05-25 17:58] LABS: ALBUMIN 3.5 G/DL (3.2-5.2); ALKALINE PHOSPHATASE 39 U/L (46-116); ALT/SGPT 14 U/L (7.0-40); AST/SGOT 12 U/L (<34); BILIRUBIN,TOTAL 0.7 MG/DL (0.3-1.2); BLOOD UREA NITROGEN 15 MG/DL (9-23); CALCIUM LEVEL 10.5 MG/DL (8.3-10.6); CARBON DIOXIDE LEVEL 32 MMOL/L (20-31); CHLORIDE LEVEL 108 MMOL/L (98-107); CHOLESTEROL LEVEL 202 MG/DL (<200); CHOLESTEROL RISK RATIO 5.17 (<5); CREATININE FOR GFR 1.04 MG/DL (0.70-1.30); GLOMERULAR FILTRATION RATE > 60.0 (>35); GLUCOSE, FASTING 125 MG/DL (74-106); POTASSIUM SERUM 3.8 MMOL/L (3.5-5.1); SODIUM LEVEL 143 MMOL/L (136-145); TOTAL PROTEIN 6.2 G/DL (5.7-8.2); TRIGLYCERIDES LEVEL 155 MG/DL (<150)
[2024-05-25 19:00] LABS: HEMOGLOBIN A1c 6.4 % (4.0-6.0)
== END ==
LOC: M WUC 10:53
PROVIDERS: ATTEND Nurse Practitioner Adult Health
DX: E11.9 Type 2 diabetes mellitus without complications (principal); E78.2 Mixed hyperlipidemia; E55.9 Vitamin D deficiency, unspecified

== ENCOUNTER → 2024-08-21 | Outpatient (REF) | payer MEDICARE, OTHER ==
[~2024-08-21] MED LIST changes: -ADV250INH INH; +ADVA1AER9 INH
[2024-08-21 17:23] LABS: BLOOD UREA NITROGEN 15 MG/DL (9-23); CREATININE FOR GFR 0.94 MG/DL (0.70-1.30); GLOMERULAR FILTRATION RATE > 60.0 (>35)
== END ==
LOC: M LABWUC 16:28
PROVIDERS: ATTEND Psychiatry & Neurology Neurology
DX: I10 Essential (primary) hypertension (principal)

== ENCOUNTER → 2024-09-01 | Outpatient (CLI) | payer MEDICARE, OTHER ==
[~2024-09-01] MED LIST changes: -BAYE325T12 PO; +BAYE325T2 PO
[2024-09-01 16:46] LABS: APPEARANCE, URINE HAZY (CLEAR); BACTERIA, URINE AUTO NEGATIVE (NEGATIVE); BASO % 0.2 % (0.0-1.0); BILIRUBIN, URINE AUTO NEGATIVE (NEGATIVE); BLOOD, URINE BLOOD NEGATIVE (NEGATIVE); CALCIUM OXALATE CRYSTALS SMALL; COLOR, URINE YELLOW (YELLOW); EOS # 0.1 10^3/uL (0.0-0.5); GLUCOSE, URINE (UA) AUTO 1+ mg/dL (NEGATIVE); HEMATOCRIT 38.6 % (42.0-52.0); HEMOGLOBIN 12.5 g/dl (13.5-17.5); KETONE, URINE AUTO NEGATIVE (NEGATIVE); LEUKOCYTE ESTERASE, URINE AUTO NEGATIVE (NEGATIVE); LYMPH % 19.8 % (24.0-44.0); MEAN CORPUSCULAR HEMOGLOBIN 28.9 pg (27.0-33.0); MEAN CORPUSCULAR HGB CONC 32.4 g/dl (32.0-36.5); MEAN CORPUSCULAR VOLUME 89.4 fl (80.0-96.0); MONO # 0.3 10^3/uL (0.0-0.8); MUCUS, URINE SMALL (NEGATIVE); NEUTROPHILS # 3.6 10^3/uL (1.5-8.5); NEUTROPHILS % 72.6 % (36.0-66.0); NITRITE, URINE AUTO NEGATIVE (NEGATIVE); PLATELET COUNT, AUTOMATED 152 10^3/uL (150-450); PROTEIN, URINE AUTO 1+ mg/dL (NEGATIVE); RBC, URINE AUTO 0 /HPF (0-3); RED BLOOD COUNT 4.32 10^6/uL (4.30-6.10); SPECIFIC GRAVITY URINE AUTO 1.023 (1.002-1.035); SQUAMOUS EPITHELIAL CELL UR AU 0 /HPF (0-6); UROBILINOGEN, URINE AUTO 0.2 mg/dL (0.0-2.0); WBC, URINE AUTO 2 /HPF (0-3)
[2024-09-01 17:11] LABS: ALBUMIN 3.6 G/DL (3.2-5.2); ALKALINE PHOSPHATASE 46 U/L (40-129); ALT/SGPT 13 U/L (7.0-40); AST/SGOT 17 U/L (<34); BILIRUBIN,TOTAL 0.5 MG/DL (0.3-1.2); BLOOD UREA NITROGEN 18 MG/DL (9-23); CALCIUM LEVEL 10.1 MG/DL (8.3-10.6); CARBON DIOXIDE LEVEL 32 MMOL/L (20-31); CHLORIDE LEVEL 108 MMOL/L (98-107); CREATININE FOR GFR 0.93 MG/DL (0.70-1.30); GLOMERULAR FILTRATION RATE > 60.0 (>35); GLUCOSE, FASTING 123 MG/DL (74-106); POTASSIUM SERUM 3.8 MMOL/L (3.5-5.1); SODIUM LEVEL 143 MMOL/L (136-145); TOTAL PROTEIN 6.6 G/DL (5.7-8.2)
== END ==
LOC: M WUC 12:56
PROVIDERS: ATTEND Psychiatry & Neurology Neurology
DX: B99.9 Unspecified infectious disease (principal); Z79.899 Other long term (current) drug therapy

== ENCOUNTER → 2024-11-23 | Outpatient (CLI) | payer MEDICARE, OTHER ==
[2024-11-23 14:13] LABS: HEMATOCRIT 37.8 % (42.0-52.0); HEMOGLOBIN 12.1 g/dl (13.5-17.5); MEAN CORPUSCULAR HEMOGLOBIN 28.9 pg (27.0-33.0); MEAN CORPUSCULAR VOLUME 90.4 fl (80.0-96.0); PLATELET COUNT, AUTOMATED 144 10^3/uL (150-450); RED BLOOD COUNT 4.18 10^6/uL (4.30-6.10); WHITE BLOOD COUNT 4.3 10^3/uL (4.0-10.0)
[2024-11-23 14:15] LABS: ALBUMIN 3.4 G/DL (3.2-5.2); ALKALINE PHOSPHATASE 43 U/L (40-129); ALT/SGPT 12 U/L (7.0-40); AST/SGOT 12 U/L (<34); BILIRUBIN,TOTAL 0.7 MG/DL (0.3-1.2); BLOOD UREA NITROGEN 16 MG/DL (9-23); CALCIUM LEVEL 10.3 MG/DL (8.3-10.6); CARBON DIOXIDE LEVEL 31 MMOL/L (20-31); CHLORIDE LEVEL 108 MMOL/L (98-107); CHOLESTEROL LEVEL 196 MG/DL (<200); CHOLESTEROL RISK RATIO 4.66 (<5); CREATININE FOR GFR 1.01 MG/DL (0.70-1.30); GLOMERULAR FILTRATION RATE > 60.0 (>35); GLUCOSE, FASTING 124 MG/DL (74-106); LDL CHOLESTEROL 126.8 MG/DL (<100); MAGNESIUM LEVEL 1.7 MG/DL (1.8-2.4); POTASSIUM SERUM 3.9 MMOL/L (3.5-5.1); SODIUM LEVEL 146 MMOL/L (136-145); TOTAL PROTEIN 6.3 G/DL (5.7-8.2); TRIGLYCERIDES LEVEL 136 MG/DL (<150)
[2024-11-23 14:26] LABS: HEMOGLOBIN A1c 5.8 % (4.0-6.0)
== END ==
LOC: M WUC 10:35
PROVIDERS: ATTEND Nurse Practitioner Adult Health
DX: G47.33 Obstructive sleep apnea (adult) (pediatric) (principal); E11.9 Type 2 diabetes mellitus without complications; E78.2 Mixed hyperlipidemia; I10 Essential (primary) hypertension; E55.9 Vitamin D deficiency, unspecified

== ENCOUNTER → 2024-11-23 | Outpatient (REF) | payer MEDICARE, OTHER | LOC: M LABWUC 16:15 | PROVIDERS: ATTEND Nurse Practitioner Family | DX: E22.1 Hyperprolactinemia (principal) ==

== ENCOUNTER → 2025-03-28 | Outpatient (CLI) | payer MEDICARE, OTHER ==
[~2025-03-28] MED LIST changes: -PROZ20CA11 PO; +PROZ20CA12 PO
== END ==
LOC: M PLAIMG 12:21
PROVIDERS: ATTEND Physician Assistant
DX: I35.9 Nonrheumatic aortic valve disorder, unspecified (principal); Z45.010 Encounter for checking and testing of cardiac pacemaker pulse generator [battery]; R00.1 Bradycardia, unspecified; I50.30 Unspecified diastolic (congestive) heart failure; I08.0 Rheumatic disorders of both mitral and aortic valves; I37.1 Nonrheumatic pulmonary valve insufficiency

== ENCOUNTER → 2025-05-14 | Outpatient (CLI) | payer MEDICARE, OTHER ==
[~2025-05-14] MED LIST changes: -ASPI-655 PO; +ASPI-737 PO
== END ==
LOC: M WUC 15:06
PROVIDERS: ATTEND Nurse Practitioner Family
DX: E22.1 Hyperprolactinemia (principal)

== ENCOUNTER → 2025-06-04 | Outpatient (CLI) | payer MEDICARE, OTHER ==
[2025-06-04 13:32] LABS: ALT/SGPT 10.0 U/L (7.0-40); AST/SGOT 13.0 U/L (<34); CALCIUM LEVEL 10.0 MG/DL (8.3-10.6); CARBON DIOXIDE LEVEL 31.0 MMOL/L (20-31); CHLORIDE LEVEL 108.0 MMOL/L (98-107); CHOLESTEROL LEVEL 178.0 MG/DL (<200); CHOLESTEROL RISK RATIO 4.27 (<5); CREATININE FOR GFR 1.15 MG/DL (0.70-1.30); GLOMERULAR FILTRATION RATE 62.4 (>35); LDL CHOLESTEROL 116.4 MG/DL (<100); MAGNESIUM LEVEL 1.7 MG/DL (1.8-2.4); NON-HDL-C 136.4 MG/DL; POTASSIUM SERUM 4.0 MMOL/L (3.5-5.1); SODIUM LEVEL 149.0 MMOL/L (136-145); TRIGLYCERIDES LEVEL 100.0 MG/DL (<150)
[2025-06-04 13:54] LABS: ESTIMATED AVERAGE GLUCOSE 131.0 MG/DL (60-110)
== END ==
LOC: M WUC 09:31
PROVIDERS: ATTEND Nurse Practitioner Adult Health
DX: I10 Essential (primary) hypertension (principal); E11.9 Type 2 diabetes mellitus without complications; E78.2 Mixed hyperlipidemia